=== PATIENT | female | born 2000 | race Two or more races ===

== ENCOUNTER 2023-04-18 06:49 | Emergency (ER) | payer OTHER, SELFPAY ==
[2023-04-18 06:54] VITALS: BP 133/76; PULSE 71; RESP 16; TEMP 36.8; O2SAT 98; BMI 38.4
[2023-04-18 07:15] LABS: Bilirubin Urine NEGATIVE (NEGATIVE); Blood Urine TRACE-I (NEGATIVE); Clarity Urine CLEAR (CLEAR); Color Urine LT. YELLOW (YELLOW); Glucose Urine UA NEGATIVE (NEGATIVE); Ketones Urine NEGATIVE (NEGATIVE); Leukocyte Esterase Urine NEGATIVE (NEGATIVE); Nitrite Urine NEGATIVE (NEGATIVE); Protein Urine NEGATIVE (NEG/TRACE); Specific Gravity Urine 1.025 (1.005-1.025); pH Urine 6.5 (5.0-9.0)
[2023-04-18 07:17] LABS: HCG Qualitative Urine* NEGATIVE (NEGATIVE)
[2023-04-18 07:20] LABS: Urine Microscopic Indicated YES
[2023-04-18 07:29] LABS: Bacteria Urine NONE SEEN #/HPF (NONE SEEN); Cast Seen? NONE SEEN #/LPF (NONE SEEN); Crystals Seen? None Seen #/HPF (None Seen); Mucus Urine NONE SEEN (NONE SEEN); RBC Urine 0-2 #/HPF (0-2); Squamous Epithelial Cell Urine FEW #/LPF (NONE/RARE); WBC Urine NONE SEEN #/HPF (NONE SEEN)
[2023-04-18 07:30] LABS: Amorphous Sediment Urine FEW
[2023-04-18 07:31] LABS: Urine Culture Indicated NO
--- NOTE | 2023-04-18 07:37 | ED_ITS ---
HPI - Female Genitourinary General Chief complaint: Urogenital-Female Time Seen by Provider: 04/18/23 07:01 Source: patient Mode of arrival: walk-in Limitations: no limitations History of Present Illness HPI Narrative: patient here for evaluation of vaginal discharge or odor and itching. She's had one episode of gonorrhea about two years ago. She is sexually aactive and is not using any type of condoms or protection. She said the male counterpart did not admit to having STDs he was aware of. She is not having any severe abdominal pain or fever nausea vomiting diarrhea or negative. She really does not have any frequency or urinary tract symptoms but she does have some burning with urination. Does not have any recent use of an antibiotic and has not had previous candidiasis. She says there is a possibility of so therefore urinalysis and test will be done before the examination. Related Data Allergies Allergy/AdvReac Type Severity Reaction Status Date / Time No Known Drug Allergies Allergy Verified 04/18/23 06:57 PFSH PFSH Social History Smoking status: Never smoker Exam Narrative Exam Narrative: awake alert does not appear to be uncomfortable. She is afebrile. Problem focused examination as noted below. Pelvic examination shows external vaginal introitus be normal with no VESICLES ulcerations or other viral stigmata. The vaginal mucosa is not inflamed there is no curdish type white discharge, the cervix is mildly inflamed. There is a whitish discharge from the cervix. There is similar to a frothy foul-smelling vaginal discharge. Full cultures were taken of the cervicall area. Constitutional Vital Signs - 24 hr 04/18/23 06:54 Temperature 98.3 F Pulse Rate [Monitor] 71 Respiratory Rate 16 Blood Pressure [Right Arm] 133/76 H Pulse Oximetry 98 Oxygen Delivery Method Room Air Course Vital Signs Vital signs: Vital Signs Temperature 98.3 F 04/18/23 06:54 Pulse Rate 71 04/18/23 06:54 Respiratory Rate 16 04/18/23 06:54 Blood Pressure 133/76 H 04/18/23 06:54 Pulse Oximetry 98 04/18/23 06:54 Oxygen Delivery Method Room Air 04/18/23 06:54 Temperature 98.3 F 04/18/23 06:54 Pulse Rate 71 04/18/23 06:54 Respiratory Rate 16 04/18/23 06:54 Blood Pressure 133/76 H 04/18/23 06:54 Pulse Oximetry 98 04/18/23 06:54 Oxygen Delivery Method Room Air 04/18/23 06:54 MDM - Female Genitourinary MDM Narrative Medical decision making narrative: this patient is fearful that she's been exposed to STDs. Findings on the clinical exam are most consistent with trichomoniasis but she would like full coverage for all possible other conditions as well. We did talk about safe condom use and being a little bit more responsible around so that she can provide getting future STDs. Lab Data Labs: Lab Results 04/18/23 04/18/23 Range/Units 07:05 07:20 Urine Color Lt. yellow (YELLOW) Urine Clarity Clear (CLEAR) Urine pH 6.5 (5.0-9.0) Ur Specific [place] 1.025 (1.005-1.025) Urine Protein Negative (NEG/TRACE) mg/dL Urine Glucose (UA) Negative (NEGATIVE) mg/dL Urine Ketones Negative (NEGATIVE) mg/dL Urine Occult Blood Trace-i (NEGATIVE) Urine Nitrite Negative (NEGATIVE) Urine Bilirubin Negative (NEGATIVE) Urine Urobilinogen 1.0 (0.2-1.0) EU/dL Ur Leukocyte Esterase Negative (NEGATIVE) Urine RBC 0-2 (0-2) #/HPF Urine WBC None seen (NONE SEEN) #/HPF Ur Squamous Epith Cells Few A (NONE/RARE) #/LPF Urine Crystals None seen (None Seen) #/HPF Amorphous Sediment Few Urine Bacteria None seen (NONE SEEN) #/HPF Urine Casts None seen (NONE SEEN) #/LPF Urine Mucus None seen (NONE SEEN) Ur Culture Indicated? 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
[2023-04-18] MEDS: CEFTRIAXONE 500 MG, LIDOCAINE HCL/PF 1 ML IM (09:09)
[2023-04-18] MEDS: AZITHROMYCIN 250 MG TABLET 1000 MG PO (09:09)
[2023-04-19 14:14] LABS: Candida species Negative (Negative); Gardnerella vaginalis Positive (Negative); Trichomonas vaginalis Negative (Negative)
--- NOTE | 2023-04-21 10:46 | PC.NURSE ---
04/21/23 call placed to pt to update on + [place]. no answer message left for return call. Cony Horowitz RN
--- NOTE | 2023-04-21 12:26 | PC.NURSE ---
04/21/23 1227 pt returned call updated on + farhan confirmed taking all atb and follow up with pcp. pt v/u and denies any further needs at this time.. Cony Horowitz RN
== END 2023-04-18 09:13 | disposition home or self-care (01) ==
PROVIDERS: Emergency Provider Emergency Medicine Emergency Medical Services
DX: N72 Inflammatory disease of cervix uteri (principal); N76.0 Acute vaginitis
CPT/HCPCS: 81003; 81015; 84703; 87070; 87210; 87480; 87491; 87510; 87591; 87660; 96372; 99284

== ENCOUNTER 2023-07-14 12:28 | Emergency (ER) | payer OTHER, SELFPAY ==
[2023-07-14 12:31] VITALS: BP 129/80; PULSE 85; RESP 16; TEMP 37.1; O2SAT 98; BMI 42.7
[2023-07-14 12:38] VITALS: O2SAT 98
--- NOTE | 2023-07-14 12:48 | ED.URI1 ---
HPI - URI/Sore Throat General Chief Complaint: Upper Respiratory Infection Stated Complaint: HEADACHE Time Seen by Provider: 07/14/23 12:33 Source: patient History of Present Illness HPI Narrative: 22-year-old female presented for sneezing and congestion. No vomiting or diarrhea or fever. No ear pain or drainage. She is worried about having Covid. Symptoms have been present for 2-3 days. Related Data Previous Rx's Medication Instructions Recorded fluticasone propionate 50 1 spray intranasal DAILY PRN nasal 07/14/23 mcg/actuation nasal congestion #16 grams spray,suspension (Flonase Allergy Relief) Allergies Allergy/AdvReac Type Severity Reaction Status Date / Time No Known Drug Allergies Allergy Verified 04/18/23 06:57 Review of Systems ROS Narrative A ten point review of systems is negative except as noted above. PFSH PFS Social History Smoking status: Never smoker Exam Narrative Exam Narrative: Nurses note and vital signs reviewed and patient is not hypoxic. General: The patient appears well and in no apparent distress. Patient is resting comfortably on cart. Skin: Warm, dry, no pallor noted. There is no rash noted. Head: Normocephalic, atraumatic Eye: Normal conjunctiva, no drainage Ears, Nose, Mouth, and Throat: oral mucosa is moist. Nares patent. Mouth without vesicles. Ear canals patent. Tm's without Erythema. No pharyngeal exudate or erythema. She has nasal congestion. Cardiovascular: Regular Rate and Rhythm Respiratory: Patient is in no distress, no accessory muscle use, lungs are clear to auscultation, no wheezing, rales or rhonchi Back: non-tender GI: soft and nontender Musculoskeletal: The patient has no evidence of calf tenderness, no pitting edema, symmetrical pulses noted bilaterally Neurological: A&O, normal speech Psychiatric: Cooperative Constitutional Vital Signs, click to edit/add: Last Vital Signs Temp 98.8 F 07/14/23 12:31 Pulse 85 07/14/23 12:31 Resp 16 07/14/23 12:31 BP 129/80 07/14/23 12:31 Pulse Ox 98 07/14/23 12:38 O2 Del Method Room Air 07/14/23 12:38 Course Vital Signs Vital signs: Vital Signs Temperature 98.8 F 07/14/23 12:31 Pulse Rate 85 07/14/23 12:31 Respiratory Rate 16 07/14/23 12:31 Blood Pressure 129/80 07/14/23 12:31 Pulse Oximetry 98 07/14/23 12:31 Oxygen Delivery Method Room Air 07/14/23 12:31 Temperature 98.8 F 07/14/23 12:31 Pulse Rate 85 07/14/23 12:31 Respiratory Rate 16 07/14/23 12:31 Blood Pressure 129/80 07/14/23 12:31 Pulse Oximetry 98 07/14/23 12:38 Oxygen Delivery Method Room Air 07/14/23 12:38 MDM - URI/Sore Throat MDM Narrative Medical decision making narrative: Covid test is negative. I've no clinical suspicion of pneumonia. Antibiotic not indicated. She'll be treated symptomatically. Treatment diagnosis and follow-up were discussed with the patient. Differential Diagnosis Differential diagnosis: Likely upper respiratory infection, sinusitis and other (Covid) Lab Data Attestation: I reviewed the patient's lab results. Labs: Lab Results 07/14/23 Range/Units 13:01 SARS-CoV-2 (PCR) Negative (NEGATIVE) Discharge Plan Discharge Chief Complaint: Upper Respiratory Infection Clinical Impression: Upper respiratory infection, viral Patient Disposition: Home, Self-Care Time of Disposition Decision: 13:40 Condition: Good Mode of Transportation: Private Vehicle Prescriptions / Home Meds: New fluticasone propionate [Flonase Allergy Relief] 50 mcg/actuation spray,suspension 1 spray intranasal DAILY PRN (Reason: nasal congestion) Qty: 16 0RF Rx Instructions: administer into each nostril Instructions: Upper Respiratory Infection (ED) Stand Alone Forms: Portal Instructions Referrals: Physician,Non-Staff, MD [Primary Care Provider] - 1 week
[2023-07-14 13:30] LABS: SARS-CoV-2 Ag NEGATIVE (NEGATIVE)
[2023-07-14 15:14] LABS: SARS-CoV-2 NAA NOT DETECTED (NOT DETECTE)
== END 2023-07-14 13:53 | disposition home or self-care (01) ==
PROVIDERS: Emergency Provider Emergency Medicine
DX: J06.9 Acute upper respiratory infection, unspecified (principal); Z20.822 Contact with and (suspected) exposure to COVID-19
CPT/HCPCS: 87635; 87811; 99283; U0003

== ENCOUNTER 2023-11-13 17:51 | Emergency (ER) | payer OTHER, SELFPAY ==
[2023-11-13 17:58] VITALS: BP 130/81; PULSE 87; RESP 16; TEMP 36.8; O2SAT 100; BMI 40.2
--- NOTE | 2023-11-13 18:16 | ED_ITS ---
HPI - Nausea/Vomiting/Diarrhea General Chief complaint: Nausea/Vomiting/Diarrhea Stated complaint: DIARRHEA, NAUSEA Time Seen by Provider: 11/13/23 17:56 Source: patient Mode of arrival: walk-in Limitations: no limitations History of Present Illness HPI Narrative: Patient is a 22-year-old female who presents to the emergency department for a 1 day history of vomiting and diarrhea. She states that she vomited all morning and on waking from a nap, she went to work and started vomiting again. She reports multiple episodes of emesis. No recent antibiotics or travel. She is not concerned for . No medications taken prior to arrival. She denies fevers, chills, upper respiratory symptoms. She reports diffuse mild pain across the upper abdomen. Related Data Previous Rx's Medication Instructions Recorded dicyclomine 20 mg tablet 20 mg PO QID PRN abdominal pain 11/13/23 #12 tabs ondansetron 4 mg disintegrating 4 mg PO Q6H PRN nausea and 11/13/23 tablet vomiting #12 tabs Allergies Allergy/AdvReac Type Severity Reaction Status Date / Time No Known Drug Allergies Allergy Verified 11/13/23 17:57 Review of Systems ROS Constitutional Denies: fever or chills Ears, nose, mouth, and throat Denies: throat pain or nasal congestion Cardiovascular Denies: chest pain Respiratory Denies: shortness of breath or cough Gastrointestinal Reports: abdominal pain, nausea, vomiting and diarrhea Genitourinary Denies: painful urination Musculoskeletal Denies: back pain or neck pain Integumentary/Breast Denies: rash Neurological Reports: headache Endocrine Denies: excessive urination PFSH PFS Social History Smoking status: Current every day smoker Exam Narrative Exam Narrative: Gen.: Awake, alert, in no distress Head: Normocephalic, atraumatic ENT: Moist mucous membranes Respiratory: No respiratory distress, lungs clear bilaterally Cardio: Regular rate and rhythm Gastrointestinal: Abdomen is soft, nondistended and nontender to palpation Extremities: Moves extremities equally Psych: Normal mood and affect Neuro: No focal neuro deficit Skin: Warm, dry, intact Constitutional Vital Signs, click to edit/add: Last Vital Signs Temp 98.3 F 11/13/23 17:58 Pulse 87 11/13/23 17:58 Resp 16 11/13/23 17:58 BP 130/81 11/13/23 17:58 Pulse Ox 100 11/13/23 17:58 Course Vital Signs Vital signs: Vital Signs Temperature 98.3 F 11/13/23 17:58 Pulse Rate 87 11/13/23 17:58 Respiratory Rate 16 11/13/23 17:58 Blood Pressure 130/81 11/13/23 17:58 Pulse Oximetry 100 11/13/23 17:58 Temperature 98.3 F 11/13/23 17:58 Pulse Rate 87 11/13/23 17:58 Respiratory Rate 16 11/13/23 17:58 Blood Pressure 130/81 11/13/23 17:58 Pulse Oximetry 100 11/13/23 17:58 MDM - Nausea/Vomiting/Diarrhea MDM Narrative Medical decision making narrative: Patient treated with IV fluids, Zofran, Levsin. Additional Toradol and Bentyl were given. Abdomen is soft and benign. Lab studies within normal limits and stool culture is negative. Patient discharged home with symptomatic treatment, work note provided. Increase fluids. Return to the ER if symptoms change or worsen. Medical Records Attestation: I reviewed the patient's medical records. Lab Data Attestation: I reviewed the patient's lab results. Labs: Lab Results 11/13/23 11/13/23 Range/Units 18:23 18:26 WBC 11.3 H (4.0-11.0) 10^3/uL RBC 4.18 L (4.20-5.40) 10^6/uL Hgb 12.2 (12.0-16.0) g/dL Hct 37.6 (36.0-48.0) % MCV 90.0 (81.0-99.0) fL MCH 29.2 (26.7-34.0) pg MCHC 32.4 (29.9-35.2) g/dL RDW 12.1 (11.0-15.0) % Plt Count 290 (150-450) 10^3/uL MPV 9.0 L (9.5-13.5) fL Neut % (Auto) 79.4 H (43.0-75.0) % Lymph % (Auto) 11.1 L (20.5-60.0) % [place] % (Auto) 8.5 (1.7-12.0) % Eos % (Auto) 0.4 L (0.9-7.0) % Baso % (Auto) 0.3 (0.2-2.0) % Neut # (Auto) 8.9 H (1.4-6.5) 10^3/uL Lymph # (Auto) 1.3 (1.2-3.8) 10^3/uL [place] # (Auto) 1.0 H (0.3-0.8) 10^3/uL Eos # (Auto) 0.1 (0.0-0.7) 10^3/uL Baso # (Auto) 0.0 (0.0-0.1) 10^3/uL Abs Immat Gran (auto) 0.03 (0.00-0.03) 10^3/uL Imm/Tot Granulo (auto) 0.3 (0.0-0.5) % Sodium 137 (136-145) mmol/L Potassium 3.7 (3.5-5.1) mmol/L Chloride 103 (98-107) mmol/L Carbon Dioxide 23.2 (21.0-32.0) mmol/L Anion Gap 14.5 BUN 10.0 (7.0-18.0) mg/dL Creatinine 0.83 (0.55-1.02) mg/dL Est GFR ( Amer) >60 (>=60) Est GFR (Non-Af Amer) >60 (>=60) BUN/Creatinine Ratio 12.0 Glucose 88 (74-106) mg/dL Calcium 8.4 L (8.5-10.1) mg/dL Total Bilirubin 0.6 (0.2-1.0) mg/dL AST 14 L (15-37) U/L ALT 15 (14-59) U/L Alkaline Phosphatase 89 (46-116) U/L Total Protein 7.6 (6.4-8.2) g/dL Albumin 3.4 (3.4-5.0) g/dL Globulin 4.2 g/dL Albumin/Globulin Ratio 0.8 Lipase 18.0 (16.0-77.0) U/L Serum HCG, Qual Negative (NEGATIVE) Stl C. cayetanensis PCR Not detected (NOT DETECTE) Stool Rotavirus (PCR) Not detected (NOT DETECTE) Stool Adenovirus (PCR) Not detected (NOT DETECTE) Stool Astrovirus (PCR) Not detected (NOT DETECTE) Stool Campylobacter PCR Not detected (NOT DETECTE) Stool Cryptosporidium PCR Not detected (NOT DETECTE) St Sh/Enteroin Ecoli PCR Not detected (NOT DETECTE) Stl Enterotoxigenic E PCR Not detected (NOT DETECTE) Stool EPEC (PCR) Not detected (NOT DETECTE) Stl E. histolytica PCR Not detected (NOT DETECTE) Stool Giardia Lamblia PCR Not detected (NOT DETECTE) Stl P. shigelloides PCR Not detected (NOT DETECTE) Stool Salmonella PCR Not detected (NOT DETECTE) Stool Sapovirus (PCR) Not detected (NOT DETECTE) Stl Shiga-like Tx 1 PCR Not detected (NOT DETECTE) St Y.enterocolitica PCR Not detected (NOT DETECTE) Stl Vibrio cholerae PCR Not detected (NOT DETECTE) Stl Enteroaggr Ecoli PCR Not detected (NOT DETECTE) Stl Norovirus GI/GII PCR Not detected (NOT DETECTE) C. difficile Toxin A&B Not detected (NOT DETECTE) Vibrio Culture Not detected (NOT DETECTE) Discharge Plan Discharge Chief Complaint: Nausea/Vomiting/Diarrhea Clinical Impression: Nausea vomiting and diarrhea Patient Disposition: Home, Self-Care Time of Disposition Decision: 21:16 Condition: Good Prescriptions / Home Meds: New dicyclomine 20 mg tablet 20 mg PO QID PRN (Reason: abdominal pain) Qty: 12 0RF ondansetron 4 mg tablet,disintegrating 4 mg PO Q6H PRN (Reason: nausea and vomiting) Qty: 12 0RF Instructions: Acute Nausea and Vomiting (ED), Acute Diarrhea (ED) Stand Alone Forms: Portal Instructions Referrals: Physician,Non-Staff, MD [Primary Care Provider] - 1 week Discharge Date/Time: 11/13/23 21:50
[2023-11-13] MEDS: ONDANSETRON PF 4 MG/2 ML VIAL IV (18:31)
[2023-11-13] MEDS: FAMOTIDINE/PF 20 MG/2 ML VIAL IV (18:31)
[2023-11-13] MEDS: HYOSCYAMINE SULFATE 0.125 MG TAB.SUBL SL (18:32)
[2023-11-13] MEDS: 0.9 % SODIUM CHLORIDE 1,000 ML 999 ML IV (18:32)
[2023-11-13 18:48] LABS: Adenovirus F 40/41 NOT DETECTED (NOT DETECTE); Astrovirus NOT DETECTED (NOT DETECTE); Campylobacter NOT DETECTED (NOT DETECTE); Cryptosporidium NOT DETECTED (NOT DETECTE); Cyclospora cayetanensis NOT DETECTED (NOT DETECTE); Entamoeba histolytica NOT DETECTED (NOT DETECTE); Enteroaggregative E.coli NOT DETECTED (NOT DETECTE); Enteropathogenic E.coli NOT DETECTED (NOT DETECTE); Enterotoxigenic E. coli NOT DETECTED (NOT DETECTE); Giardia lamblia NOT DETECTED (NOT DETECTE); Norovirus GI/GII NOT DETECTED (NOT DETECTE); Plesiomonas shigelloides NOT DETECTED (NOT DETECTE); Rotavirus A NOT DETECTED (NOT DETECTE); Salmonella NOT DETECTED (NOT DETECTE); Sapovirus NOT DETECTED (NOT DETECTE); Shiga-like toxin-producing E.C NOT DETECTED (NOT DETECTE); Shigella/Enteroinvasive E.coli NOT DETECTED (NOT DETECTE); Vibrio NOT DETECTED (NOT DETECTE); Vibrio cholerae NOT DETECTED (NOT DETECTE); Yersinia enterocolitica NOT DETECTED (NOT DETECTE)
[2023-11-13 19:05] LABS: Basophils Percent Auto 0.3 % (0.2-2.0); Eosinophils Absolute Auto 0.1 10^3/uL (0.0-0.7); Eosinophils Percent Auto 0.4 % (0.9-7.0); Hematocrit 37.6 % (36.0-48.0); Hemoglobin 12.2 g/dL (12.0-16.0); Immature Granulocytes Abs Auto 0.03 10^3/uL (0.00-0.03); Immature Granulocytes Pct Auto 0.3 % (0.0-0.5); Lymphocytes Absolute Auto 1.3 10^3/uL (1.2-3.8); Lymphocytes Percent Auto 11.1 % (20.5-60.0); Mean Corpuscular HGB Conc 32.4 g/dL (29.9-35.2); Mean Corpuscular Hemoglobin 29.2 pg (26.7-34.0); Monocytes Percent Auto 8.5 % (1.7-12.0); Neutrophils Absolute Auto 8.9 10^3/uL (1.4-6.5); Neutrophils Percent Auto 79.4 % (43.0-75.0); Platelet Count 290 10^3/uL (150-450); Red Blood Count 4.18 10^6/uL (4.20-5.40); Red Cell Distribution Width 12.1 % (11.0-15.0); White Blood Count 11.3 10^3/uL (4.0-11.0)
[2023-11-13] MEDS: DICYCLOMINE HCL 10 MG CAPSULE 20 MG PO (19:43)
[2023-11-13] MEDS: KETOROLAC TROMETHAMINE 30 MG/ML VIAL IVP (19:43)
[2023-11-13 19:47] LABS: Alanine Aminotransferase 15 U/L (14-59); Albumin Globulin Ratio 0.8; Albumin Level 3.4 g/dL (3.4-5.0); Alkaline Phosphatase 89 U/L (46-116); Anion Gap 14.5; Aspartate Amino Transferase 14 U/L (15-37); Bilirubin Total 0.6 mg/dL (0.2-1.0); Calcium 8.4 mg/dL (8.5-10.1); Carbon Dioxide 23.2 mmol/L (21.0-32.0); Chloride 103 mmol/L (98-107); Estimated GFR (African America >60 (>=60); Estimated GFR (Non-African Ame >60 (>=60); Globulin 4.2 g/dL; Glucose 88 mg/dL (74-106); Potassium 3.7 mmol/L (3.5-5.1); Sodium 137 mmol/L (136-145); Total Protein 7.6 g/dL (6.4-8.2)
[2023-11-13 19:58] LABS: HCG Qualitative NEGATIVE (NEGATIVE)
== END 2023-11-13 21:50 | disposition home or self-care (01) ==
PROVIDERS: Physician Assistant; Emergency Provider Emergency Medicine
DX: R11.2 Nausea with vomiting, unspecified (principal); R19.7 Diarrhea, unspecified; F17.200 Nicotine dependence, unspecified, uncomplicated
CPT/HCPCS: 36415; 80053; 83690; 84703; 85025; 87507; 96374; 96375; 99284; J1885; J2405

== ENCOUNTER 2023-12-14 21:34 | Outpatient (REF) | payer OTHER, SELFPAY ==
--- OUTSIDE RECORDS SUMMARY | 2023-12-14 21:39 | XMS_ITS | CCD ---
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 Fernando Rasheed MD Urine RBC's 0 TO 2 Normal 0-4 [facility] Comment on above: Result Comment: Refe rence range defined for non-centrifuged specimen. Performed By: #### U PHUCO, UAX #### [address] [address] [employer]: Fernando Rasheed MD Urine WBC's 5 TO 10 Normal 0-5 [facility] Comment on above: Performed By: #### U PHUCO, UAX #### [address] [address] [employer]: Fernando Rasheed MD Vaginitis DNA Probeon 2021 Bandar Negative Normal NEG [facility] Comment on above: Result Comment: for Bandar sp. Method of testing is a DNA probe intended for detection and identification of Bandar species, Gardnerella vaginalis, and Trichomonas vaginalis nucleic acid in vaginal fluid specimens from patients with symptoms of vaginitis/vaginosis. Performed By: #### V AGP ####[address] [address] Lab Director: Fernando Rasheed MD Gardnerella Positive Abnormal NEG [facility] Comment on above: Result Comment: for Gardnerella vaginalis Performed By: #### V AGP ####[address] [place] [address] Lab Director: Fernando Rasheed MD Trichomonas Negative Normal NEG [facility] Comment on above: Result Comment: for Trichomonas Vaginalis Performed By: #### V AGP ####[facility] [address] [address] Lab Director: Fernando Rasheed MD Source .VAGINAL SWAB Normal [facility] Comment on above: Performed By: #### V AGP ####[facility] [address] [place] [address] Lab Director: Fernando Rasheed MD Chlamydia/GC,DNA Ampon 02-07 Chlamydia Probe Negative [facility] Comment on above: Result Comment: CHLA MYDIA TRACHOMATIS DNA not detected by nucleic acid amplification. This test is intended for medical purposes only and is not valid for the evaluation of suspected sexual abuse or for other forensic purposes. In certain contexts, culture may be required to meet applicable laws and regulations for diagnosis of C. trachomatis and N. gonorrhoeae infections. Per 2014 CDC recommendations, this test does not include confirmation of positive results by an alternative nucleic acid target. Performed By: #### S WCGP #### [address] [address] [employer]: Fernando Rasheed MD Gonorrhea Probe Negative [facility] Comment on above: Result Comment: NEIS SERIA GONORRHOEAE DNA not detected by nucleic acid amplification. This test is intended for medical purposes only and is not valid for the evaluation of suspected sexual abuse or for other forensic purposes. In certain contexts, culture may be required to meet applicable laws and regulations for diagnosis of C. trachomatis and N. gonorrhoeae infections. Per 2014 CDC recommendations, this test does not include confirmation of positive results by an alternative nucleic acid target. Performed By: #### S WCGP #### [address] [address] [employer]: Fernando Rasheed MD Basic Metab w/rfx MGon 02-05 (cont.) [facility] Comment on above: Result Comment: Aver age GFR for 20-29 years old: 116 mL/min/1.73sq m Chronic Kidney Disease: <60 mL/min/1.73sq m Kidney failure: <15 mL/min/1.73sq m eGFR calculated using average adult body mass. Additional eGFR calculator available at: http://www.[employer].Eventtus/multiple_crcl_2012.htm Performed By: #### C DP, HCG, BMPX #### [facility] [address] [place] [address] [employer] Operator: Bill Landeros DO Anion gap [Moles/Vol] 11 mmol/L Normal 9-17 [facility] Comment on above: Performed By: #### C DP, HCG, BMPX #### [facility] [address] [place] [address] [employer] Operator: Bill Landeros DO Calcium [Mass/Vol] 8.6 mg/dL Normal 8.6-10.4 [facility] Comment on above: Performed By: #### C DP, HCG, BMPX #### [facility] [place] [address] [employer] Operator: Bill Landeros DO Chloride [Moles/Vol] 105 mmol/L Normal 98-107 [facility] Comment on above: Performed By: #### C DP, HCG, BMPX #### [facility] [address] [place] [address] [employer] Operator: Bill Landeros DO CO2 [Moles/Vol] 23 mmol/L Normal 20-31 [facility] Comment on above: Performed By: #### C DP, HCG, BMPX #### [facility] [place] [address] [employer] Operator: Bill Landeros DO Creatinine [Mass/Vol] 0.66 mg/dL Normal 0.50-0.90 [facility] Comment on above: Performed By: #### C DP, HCG, BMPX #### [facility] [address] [place] [address] [employer] Operator: Bill Landeros DO GFR, Amer >60 Normal >60 [facility] Comment on above: Performed By: #### C DP, HCG, BMPX #### [facility] [address] [place] [address] [employer] Operator: Bill Landeros DO GFR,non Amer >60 Normal >60 [facility] Comment on above: Performed By: #### C DP, HCG, BMPX #### [facility] [place] [address] [employer]: Bill Landeros DO Glucose [Mass/Vol] 130 mg/dL High 70-99 [facility] Comment on above: Performed By: #### C DP, HCG, BMPX #### [facility] [place] [address] [employer]: Bill Landeros DO Potassium [Moles/Vol] 4.0 mmol/L Normal 3.7-5.3 [facility] Comment on above: Performed By: #### C DP, HCG, BMPX #### [facility] [place] [address] [employer] Operator: Bill Landeros DO Sodium [Moles/Vol] 139 mmol/L Normal 135-144 [facility] Comment on above: Performed By: #### C DP, HCG, BMPX #### [facility] [place] [address] [employer] Operator: Bill Landeros DO Urea nitrogen [Mass/Vol] 13 mg/dL Normal 6-20 [facility] Comment on above: Performed By: #### C DP, HCG, BMPX #### [facility] [place] [address] [employer]: Bill Landeros DO CBC with Diffon 02-05-2022 Abs. Basophil 0.00 k/uL Normal 0.0-0.2 [facility] Comment on above: Performed By: #### C DP, HCG, BMPX #### [facility] [address] [place] [address] [employer]: Bill Landeros DO Abs.Neutrophil (Seg) 6.90 k/uL Normal 1.3-9.1 [facility] Comment on above: Performed By: #### C DP, HCG, BMPX #### [facility] [address] [place] [address] [employer]: Bill Landeros DO Basophils/100 WBC (Bld) 0 % Normal 0-2 [facility] Comment on above: Performed By: #### C DP, HCG, BMPX #### [facility] [address] [place] [address] [employer] Operator: Bill Landeros DO Eosinophils (Bld) [#/Vol] 0.10 10*3/uL Normal 0.0-0.4 [facility] Comment on above: Performed By: #### C DP, HCG, BMPX #### [facility] [address] [place] [address] [employer]: Bill Landeros DO Eosinophils/100 WBC (Bld) 1 % Normal 0-4 [facility] Comment on above: Performed By: #### C DP, HCG, BMPX #### [facility] [address] [place] [address] [employer] Operator: Bill Landeros DO Erythrocyte distribution width (RBC) [Ratio] 12.7 % Normal 11.5-14.9 [facility] Comment on above: Performed By: #### C DP, HCG, BMPX #### [facility] [place] [address] [employer] Operator: Bill Landeros DO Hematocrit (Bld) [Volume fraction] 38.4 % Normal 36-46 [facility] Comment on above: Performed By: #### C DP, HCG, BMPX #### [facility] [place] [address] [employer] Operator: Bill Landeros DO Hemoglobin (Bld) [Mass/Vol] 12.7 g/dL Normal 12.0-16.0 [facility] Comment on above: Performed By: #### C DP, HCG, BMPX #### [facility] [address] [place] [address] [employer] Operator: Bill Landeros DO Lymphocytes (Bld) [#/Vol] 2.20 10*3/uL Normal 1.2-5.2 [facility] Comment on above: Performed By: #### C DP, HCG, BMPX #### [facility] [address] [place] [address] [employer] Operator: Bill Landeros DO Lymphocytes/100 WBC (Bld) 22 % Low 25-45 [facility] Comment on above: Performed By: #### C DP, HCG, BMPX #### [facility] [place] [address] [employer] Operator: Bill Landeros DO MCH (RBC) [Entitic mass] 28.8 pg Normal 26-34 [facility] Comment on above: Performed By: #### C DP, HCG, BMPX #### [facility] [place] [address] [employer] Operator: Fanelly, Bill, DO MCHC (RBC) [Mass/Vol] 32.9 g/dL Normal 31-37 [facility] Comment on above: Performed By: #### C DP, HCG, BMPX #### [facility] [place] [address] [employer] Operator: Bill Landeros DO MCV (RBC) [Entitic vol] 87.5 fL Normal 80-100 [facility] Comment on above: Performed By: #### C DP, HCG, BMPX #### [facility] [place] [address] [employer] Operator: Bill Landeros DO Monocytes (Bld) [#/Vol] 0.70 10*3/uL Normal 0.1-1.3 [facility] Comment on above: Performed By: #### C DP, HCG, BMPX #### [facility] [address] [place] [address] [employer] Operator: Bill Landeros DO Monocytes/100 WBC (Bld) 7 % Normal 2-8 [facility] Comment on above: Performed By: #### C DP, HCG, BMPX #### [facility] [address] [place] [address] [employer] Operator: Bill Landeros DO Neutrophil (Seg) 70 % High 34-64 [facility] Comment on above: Performed By: #### C DP, HCG, BMPX #### [facility] [place] [address] [employer] Operator: Bill Landeros DO Platelet mean volume (Bld) [Entitic vol] 6.8 fL Normal 6.0-12.0 [facility] Comment on above: Performed By: #### C DP, HCG, BMPX #### [facility] [address] [place] [address] [employer] Operator: Bill Landeros DO Platelets (Bld) [#/Vol] 305 10*3/uL Normal 150-450 [facility] Comment on above: Performed By: #### C DP, HCG, BMPX #### [facility] [address] [place] [address] [employer] Operator: Bill Landeros DO RBC (Bld) [#/Vol] 4.39 10*6/uL Normal 4.0-5.2 [facility] Comment on above: Performed By: #### C DP, HCG, BMPX #### [facility] [place] [address] [employer] Operator: Bill Landeros DO WBC (Bld) [#/Vol] 9.9 10*3/uL Normal 4.5-13.5 [facility] Comment on above: Performed By: #### C DP, HCG, BMPX #### [facility] [address] [facility] [place] [address] [employer] Operator: Bill Landeros DO HCG Screen, Bloodon 02-06-20 HCG Screen, Blood Negative Normal NEG [facility] Comment on above: Result Comment: Spec imens with hCG levels near the threshold of the test (25 mIU/mL) may give a negative or indeterminate result. In such cases, another test should be performed with a new specimen in 48-72 hours. If early is suspected clinically in this setting, correlation with quantitative serum b-hCG level is suggested. Performed By: #### C DP, HCG, BMPX #### [facility] [address] [place] [address] [employer] Operator: Bill Landeros DO Urinalysis w/ Microon 2021 Bacteria FEW Abnormal NONE [facility] Comment on above: Performed By: #### U AMIC #### [facility] [place] [address] [employer] Operator: Bill Landeros DO Casts 0 TO 2 Normal [facility] Comment on above: Performed By: #### U AMIC #### [facility] [address] [place] [address] [employer] Operator: Bill Landeros DO Epithelial cells LM Ql (Urine sed) 6 TO 9 Normal [facility] Comment on above: Performed By: #### U AMIC #### [facility] [address] [place] [address] [employer] Operator: Bill Landeros DO Urine RBC's 10 TO 20 Normal [facility] Comment on above: Performed By: #### U AMIC #### [facility] [address] [place] [address] [employer] Operator: Bill Landeros DO Urine WBC's 10 TO 20 Normal [facility] Comment on above: Performed By: #### U AMIC #### [facility] [address] [place] [address] [employer] Operator: Bill Landeros DO Bilirubin, SemiQt,Ur Negative Normal NEG [facility] Comment on above: Performed By: #### U AMIC #### [facility] [address] [place] [address] [employer] Operator: Bill Landeros DO Blood, Urine LARGE Abnormal NEG [facility] Comment on above: Performed By: #### U AMIC #### [facility] [address] [place] [address] [employer] Operator: Bill Landeros DO Clarity (U) Clear Normal CLEAR [facility] Comment on above: Performed By: #### U AMIC #### [facility] [address] [place] [address] [employer] Operator: Bill Landeros DO Color (U) Yellow Normal YEL [facility] Comment on above: Performed By: #### U AMIC #### [facility] [address] [facility] [place] [address] [employer] Operator: Bill Landeros DO Glucose Ql (U) Negative Normal NEG [facility] Comment on above: Performed By: #### U AMIC #### [facility] [address] [place] [address] [employer] Operator: Bill Landeros DO Ketones Ql (U) Negative Normal NEG [facility] Comment on above: Performed By: #### U AMIC #### [facility] [address] [place] [address] [employer] Operator: Bill Landeros DO Leukocyte esterase Test strip Ql (U) SMALL Abnormal NEG [facility] Comment on above: Performed By: #### U AMIC #### [facility] [place] [address] [employer] Operator: Bill Landeros DO Nitrite,Ur Negative Normal NEG [facility] Comment on above: Performed By: #### U AMIC #### [facility] [address] [place] [address] [employer] Operator: Bill Landeros DO PH,Ur 6.5 Normal 5.0-8.0 [facility] Comment on above: Performed By: #### U AMIC #### [facility] [address] [place] [address] [employer] Operator: Bill Landeros DO Protein Ql (U) TRACE Abnormal NEG [facility] [facility] Comment on above: Performed By: #### U AMIC #### [facility] [address] [place] [address] Contour Path Tape Mill Operator: Bill Landeros DO Spec. [place],Ur 1.025 Normal 1.000-1.030 [facility] Comment on above: Performed By: #### U AMIC #### [facility] [address] [place] [address] Contour Path T[employer] Mill Operator: Bill Landeros DO Urobilinogen,Ur Normal Normal NORM [facility] Comment on above: Performed By: #### U AMIC #### [facility] [address] [place] [address] Contour Path T[employer] Mill Operator: Bill Landeros DO Vaginitis DNA Probeon 2021 Bandar Negative Normal NEG [facility] Comment on above: Result Comment: for Bandar sp. Method of testing is a DNA probe intended for detection and identification of Bandar species, Gardnerella vaginalis, and Trichomonas vaginalis nucleic acid in vaginal fluid specimens from patients with symptoms of vaginitis/vaginosis. Performed By: #### V AGP #### [facility] [address] [place] [address] [employer] T[employer] Mill Operator: Bill Landeros DO Gardnerella Negative Normal NEG [facility] Comment on above: Result Comment: for Gardnerella vaginalis Performed By: #### V AGP #### [facility] [address] [place] [address] [employer] Mill Operator: Bill Landeros DO Trichomonas Positive Abnormal NEG [facility] Comment on above: Result Comment: for Trichomonas Vaginalis Performed By: #### V AGP #### [facility] [address] [place] [address] [employer] Mill Operator: Bill Landeros DO Source .VAGINAL SWAB Normal [facility] Comment on above: Performed By: #### V AGP #### [facility] [address] [place] [address] Cont[employer] Mill Operator: Fanelly, Bill, DO CBC Auto Differentialon 11-1 8-2021 Absolute Eos # <0.03 [facility] th Absolute Immature Granulocyte <0.03 [facility] Absolute Lymph # 2.01 [facility] alth Absolute [place] # 0.64 [facility] Basophils (Bld) [#/Vol] 10*3/uL [facility] Basophils/100 WBC (Bld) 0 % 0 - 2 % [facility] Differential Type NOT REPORTED [facility] Eosinophils/100 WBC (Bld) 0 % Low 1 - 4 % [facility] Hematocrit (Bld) [Volume fraction] 40.2 % 36.3 - 47.1 % [facility] Hemoglobin.gastroint estinal spec 1 Ql (Stl) 13.0 g/dL 11.9 - 15.1 g/dL [facility] Immature granulocytes/100 WBC (Bld) 0 % 0 [facility] Interpretation and review of laboratory results Abnormal [facility] Lymphocytes/100 WBC (Bld) 35 % 25 - 45 % [facility] MCH (RBC) [Entitic mass] 28.8 pg 25.2 - 33.5 pg [facility] MCHC (RBC) [Mass/Vol] 32.3 g/dL 28.4 - 34.8 g/dL [facility] MCV (RBC) [Entitic vol] 88.9 fL 82.6 - 102.9 fL [facility] Monocytes/100 WBC (Bld) 11 % High 2 - 8 % [facility] NRBC Automated 0.0 0.0 per 100 WBC [facility] Platelet distribution width (Bld) [Ratio] 11.9 % 11.8 - 14.4 % [facility] Platelet Estimate NOT REPORTED [facility] Platelet mean volume (Bld) [Entitic vol] 10.2 fL 8.1 - 13.5 fL [facility] Platelets (Bld) [#/Vol] 201 10*3/uL [facility] RBC (Bld) [#/Vol] 4.52 10*6/uL 3.95 - 5.1 1 m/uL [facility] RBC (Bld) [#/Vol] NOT REPORTED [facility] Segmented neutrophils/100 WBC (Bld) 54 % 34 - 64 % [facility] Segs Absolute 2.99 [facility] WBC (Bld) [#/Vol] 5.7 10*3/uL [facility] WBC (Bld) [#/Vol] NOT REPORTED [facility] COVID-19, Rapidon 09-16-2021 Interpretation and review of laboratory results Abnormal [facility] SARS-CoV-2 (COVID-19) RNA TRISH+probe Ql (Unsp spec) Detected Abnormal Not Detected [facility] Comment on above: Rapid NAAT: The specimen is POSITIVE for SARS-Cov-2, the novel coronavirus associated with COVID-19. This test has been authorized by the FDA under an Emergency Use Authorization (EUA) for use by authorized laboratories. The ID NOW COVID-19 assay is designed to detect the virus that causes COVID-19 in patients with signs and symptoms of infection who are suspected of COVID-19. An individual without symptoms of COVID-19 and who is not shedding SARS-CoV-2 virus would expect to have a negative (not detected) result in this assay. Fact sheet for Healthcare Providers: https://www.fda.gov/media/864194/download Fact sheet for Patients: https://www.fda.gov/media/455796/download Methodology: Isothermal Nucleic Acid Amplification Results reported to the appropriate Health Department Specimen Description .NASOPHARYNGEAL SWAB [facility] Comprehensive Metabolic Pane l w/ Reflex to MGon 09-16-2021 Albumin [Mass/Vol] 3.9 g/dL 3.5 - 5.2 g/dL [facility] Albumin/Globulin [Mass ratio] 1.1 {ratio} [facility] ALP (Bld) [Catalytic activity/Vol] 68 U/L 35 - 104 U/L [facility] ALT [Catalytic activity/Vol] 14 U/L 5 - 33 U/L [facility] Anion gap [Moles/Vol] 9 mmol/L 9 - 17 mmol/L [facility] AST [Catalytic activity/Vol] 19 U/L <32 [facility] Bilirubin [Mass/Vol] 0.34 mg/dL 0.3 - 1.2 mg/dL [facility] Calcium [Mass/Vol] 8.7 mg/dL 8.6 - 10. 4 mg/dL [facility] Chloride [Moles/Vol] 104 mmol/L 98 - 107 mmol/L [facility] CO2 [Moles/Vol] 26 mmol/L 20 - 31 mmol/L [facility] Creatinine [Mass/Vol] 0.6 mg/dL 0.50 - 0.90 mg/dL [facility] Free PSA/Total PSA [Mass fraction] 7.5 g/dL 6.4 - 8.3 g/dL [facility] GFR NOT REPORTED >60 mL/min [facility] GFR Non- Pediatric GFR requires additional information. Refer to NKDEP website for calculator. >60 mL/min [facility] [employer] GFR/1.73 sq M.predicted MDRD (S/P/Bld) [Vol rate/Area] [facility] Comment on above: Average GFR for <20 years old not available. Chronic Kidney Disease: <60 mL/min/1.73sq m Kidney failure: <15 mL/min/1.73sq m eGFR calculated using average adult body mass. Additional eGFR calculator available at: http://www.HealthyOut/multiple_crcl_2012.htm GFR/1.73 sq M.predicted MDRD (S/P/Bld) [Vol rate/Area] NOT REPORTED [facility] Glucose [Mass/Vol] 106 mg/dL High 70 - 99 mg/dL [facility] Interpretation and review of laboratory results Abnormal [facility] Potassium [Moles/Vol] 4.0 mmol/L 3.7 - 5.3 mmol/L [facility] Sodium [Moles/Vol] 139 mmol/L 135 - 144 mmol/L [facility] Urea nitrogen (BldV) [Mass/Vol] 6 mg/dL 6 - 20 mg/dL [facility] Urea nitrogen/Creatinine (Bld) [Mass ratio] NOT REPORTED [facility] Lipaseon 09-16-2021 Lipase [Catalytic activity/Vol] 18 U/L 13 - 60 U/L [facility] No Panel Informationon 09-16 [facility] XR CHEST PORTABLEon 09-16-20 Suggestion of mild peribronchial cuffing, which can be seen in a setting of reactive airway disease or viral infection without confluent airspace opacity seen. [facility] RIS CONSOLIDATED EXAMINATION: ONE XRAY VIEW OF THE CHEST 09/16/2021 10:21 pm COMPARISON: None. HISTORY: ORDERING SYSTEM PROVIDED HISTORY: Cough/diarrhea/r/o covid TECHNOLOGIST PROVIDED HISTORY: Cough/diarrhea/r/o covid FINDINGS: The cardiac silhouette appears within normal limits. There is suggestion of mild peribronchial cuffing, which can be seen in a setting of reactive air disease or viral infection without confluent airspace opacity, pleural effusion or pneumothorax is seen. [facility] RIS Kishan Kelsey - 09/16/2021 EXAMINATION: ONE XRAY VIEW OF THE CHEST 09/16/2021 10:21 pm COMPARISON: None. HISTORY: ORDERING SYSTEM PROVIDED HISTORY: Cough/diarrhea/r/o covid TECHNOLOGIST PROVIDED HISTORY: Cough/diarrhea/r/o covid FINDINGS: The cardiac silhouette appears within normal limits. There is suggestion of mild peribronchial cuffing, which can be seen in a setting of reactive air disease or viral infection without confluent airspace opacity, pleural effusion or pneumothorax is seen. IMPRESSION: Suggestion of mild peribronchial cuffing, which can be seen in a setting of reactive airway disease or viral infection without confluent airspace opacity seen. [employer] Phone: Radiology Study observation (narrative) [employer] Phone: XR CHEST PORTABLEOrdered By: Kishan Vicente on 09-16-2021 [employer] Phone: Microscopic Urinalysison - [facility] [place] Amorphous, UA NOT REPORTED None Site Tour a lt Bacteria, UA NOT REPORTED None Site Tour [facility] Casts UA NOT REPORTED [place] Crystals, UA NOT REPORTED None /HPF [facility] Epithelial Cells UA 0 TO 2 [place] Mucus, UA NOT REPORTED None [facility] Other Observations UA NOT REPORTED NOT REQ. [facility] RBC, UA None [facility] Comment on above: Reference range defi nick for non-centrifuged specimen. Renal Epithelial, UA NOT REPORTED 0 /HPF [facility] Trichomonas, UA NOT REPORTED None Site Tour [facility] WBC, UA 2 TO 5 [facility] Yeast, UA NOT REPORTED None [employer] , Urineon 1 Beta HCG ( test) Ql (U) Negative NEGATIVE [facility] Comment on above: Specimens with hCG l evels near the threshold of the test (25 mIU/mL) may give a negative or indeterminate result. In such cases, another test should be performed with a new specimen in 48-72 hours. If early is suspected clinically in this setting, correlation with quantitative serum b-hCG level is suggested. [facility] Urinalysis Reflex to Culture on 09-09-2021 Bilirubin Urine Negative NEGATIVE [facility] Color, UA Yellow Yellow [facility] Glucose, Ur Negative NEGATIVE [facility] Interpretation and review of laboratory results Abnormal [facility] Ketones Ql (U) Negative NEGATIVE [facility] Leukocyte esterase Test strip Ql (U) TRACE Abnormal NEGATIVE [facility] Nitrite, Urine Negative NEGATIVE [facility] pH, UA 7.0 [facility] Protein, UA Negative NEGATIVE [facility] Specific [place], UA 1.005 [facility] Turbidity UA Clear Clear [facility] Urinalysis Comments NOT REPORTED [facility] Urine Hgb Negative NEGATIVE [facility] Urobilinogen, Urine Normal Normal [facility] COVID-19, RapidOrdered By: Fanny Joe on 06-30-2021 SARS-CoV-2 (COVID-19) RNA TRISH+probe Ql (Unsp spec) Not detected Not Detected [employer] Phone: Comment on above: Rapid NAAT: The specimen is NEGATIVE for SARS-CoV-2, the novel coronavirus associated with COVID-19. The ID NOW COVID-19 assay is designed to detect the virus that causes COVID-19 in patients with signs and symptoms of infection who are suspected of COVID-19. An individual without symptoms of COVID-19 and who is not shedding SARS-CoV-2 virus would expect to have a negative (not detected) result in this assay. Negative results should be treated as presumptive and, if inconsistent with clinical signs and symptoms or necessary for patient management, should be tested with an alternative molecular assay. Negative results do not preclude SARS-CoV-2 infection and should not be used as the sole basis for patient management decisions. Fact sheet for Healthcare Providers: https://www.fda.gov/media/678531/download Fact sheet for Patients: https://www.fda.gov/media/048240/download Methodology: Isothermal Nucleic Acid Amplification Specimen Description .NASOPHARYNGEAL SWAB [employer] Phone: [employer] Phone: *SARS-CoV-2 COVID-19on 09-29 [id number] Not Detected Normal Not Detected [facility] Comment on above: Order Comment: The A ptima SARS-CoV-2 assay is a nucleic acid amplification test intended for the qualitative detection of RNA from SARS-CoV-2 isolated and purified from nasopharyngeal (JOCKEY VALET),oropharyngeal (OP), nasal swab, sputum, and bronchoalveolar lavage (BAL) specimens from patients with signs and symptoms of infection who are suspected of COVID-19. Results are for the identification of SARS-CoV-2 RNA. The SARS-CoV-2 RNA is generally detectable during the acute phase of infection. The Aptima SARS-CoV-2 Assay on the [employer] and Media[employer] Fusion system is intended for use by laboratory personnel specifically instructed and trained in the operation of the [place] and [employer] Fusion system. The Aptima SARS-CoV-2 assay is only for use under the Food and Drug Administration Emergency Use Authorization. Testing is limited to laboratories certified under the Clinical Laboratory Improvement Amendments of 1988 (CLIA), 42 U.S.C. ???263a, to perform high complexity tests. Not Detected: Not detected does not preclude SARS-CoV-2 infection and should not be used as the sole basis for patient management decisions. Not detected results must be combined with clinical observations, patient history, and epidemiological information. Performed By: #### [id number] #### [facility] [address] [facility]. [address] POC STREP SCREENon 0 STREP POC Positive Abnormal NEG [facility] Comment on above: Result Comment: Perf ormed in Emergency Department. Performed By: #### [id number] #### [facility] [address] CBC Auto Differentialon - Basophils (Bld) [#/Vol] 0.00 10*3/uL [place] Basophils/100 WBC (Bld) 0 % 0 - 2 % [place] Differential Type NOT REPORTED [place] Eosinophils (Bld) [#/Vol] 0.10 10*3/uL [place] Eosinophils/100 WBC (Bld) 1 % 0 - 4 % [place] Erythrocyte distribution width (RBC) [Ratio] 12.8 % 11.5 - 14.9 % [place] Hematocrit (Bld) [Volume fraction] 38.8 % 36 - 46 % [place] Hemoglobin (Bld) [Mass/Vol] 12.5 g/dL 12 - 16 g/dL [place] Lymphocytes (Bld) [#/Vol] 3.30 10*3/uL [place] Lymphocytes/100 WBC (Bld) 31 % 25 - 45 % [place] MCH (RBC) [Entitic mass] 27.7 pg 25 - 35 pg [place] MCHC (RBC) [Mass/Vol] 32.2 g/dL 31 - 37 g/dL [place] MCV (RBC) [Entitic vol] 85.9 fL 78 - 102 fL [place] Monocytes (Bld) [#/Vol] 0.90 10*3/uL [place] Monocytes/100 WBC (Bld) 8 % 2 - 8 % [place] Platelet mean volume (Bld) [Entitic vol] 7.1 fL 6 - 12 fL [place] Platelets (Bld) [#/Vol] 336 10*3/uL [place] Platelets (Bld) [#/Vol] NOT REPORTED [place] RBC (Bld) [#/Vol] 4.52 10*6/uL 4 - 5.2 m/uL [place] RBC morphology finding Nom (Bld) NOT REPORTED [place] Segmented neutrophils/100 WBC (Bld) 60 % 34 - 64 % [place] Segs Absolute 6.20 [place] WBC (Bld) [#/Vol] NOT REPORTED per 100 WBC [place] WBC (Bld) [#/Vol] 10.6 10*3/uL [place] WBC Morphology NOT REPORTED [place], [place] Comprehensive Metabolic Pane mark 05-26-2020 Albumin [Mass/Vol] 3.9 g/dL 3.5 - 5.2 g/dL [place] Albumin/Globulin [Mass ratio] NOT REPORTED [place] ALP [Catalytic activity/Vol] 86 U/L 35 - 104 U/L [place] ALT [Catalytic activity/Vol] 7 U/L 5 - 33 U/L [place] Anion gap [Moles/Vol] 9 mmol/L 9 - 17 mmol/L [place] AST [Catalytic activity/Vol] 12 U/L <32 [place] Bilirubin Ql (U) 0.35 mg/dL 0.3 - 1.2 mg/dL [place] Bun/Cre Ratio NOT REPORTED [place] Calcium [Mass/Vol] 9.2 mg/dL 8.6 - 10. 4 mg/dL [place] Chloride [Moles/Vol] 106 mmol/L 98 - 107 mmol/L [place] CO2 [Moles/Vol] 27 mmol/L 20 - 31 mmol/L [place] Creatinine [Mass/Vol] 0.81 mg/dL 0.5 - 0.9 mg/dL [place] GFR NOT REPORTED >60 mL/min [place] GFR Non- Pediatric GFR requires additional information. Refer to NKDEP website for calculator. >60 mL/min [place] GFR/1.73 sq M predicted among non-blacks MDRD (S/P/Bld) [Vol rate/Area] [place] Comment on above: Average GFR for <20 years old not available. Chronic Kidney Disease: <60 mL/min/1.73sq m Kidney failure: <15 mL/min/1.73sq m eGFR calculated using average adult body mass. Additional eGFR calculator available at: http://www.[employer].Eventtus/multiple_crcl_2012.htm GFR/1.73 sq M predicted among non-blacks MDRD (S/P/Bld) [Vol rate/Area] NOT REPORTED [place] Glucose [Mass/Vol] 79 mg/dL 70 - 99 mg/dL [place] Interpretation and review of laboratory results Abnormal [place] Potassium [Moles/Vol] 3.6 mmol/L Low 3.7 - 5.3 mmol/L [place] Protein [Mass/Vol] 7.9 g/dL 6.4 - 8.3 g/dL [place] Sodium [Moles/Vol] 142 mmol/L 135 - 144 mmol/L [place] Urea nitrogen [Mass/Vol] 9 mg/dL 6 - 20 mg/dL [place] HCG, ,Urineon 05-26 Beta HCG ( test) Ql (U) Negative NEGATIVE [place] Comment on above: Specimens with hCG l evels near the threshold of the test (25 mIU/mL) may give a negative or indeterminate result. In such cases, another test should be performed with a new specimen in 48-72 hours. If early is suspected clinically in this setting, correlation with quantitative serum b-hCG level is suggested. Lipaseon 05-26-2020 Lipase [Catalytic activity/Vol] 20 U/L 13 - 60 U/L [place] Otheron 05-26-2020 Immature granulocytes (Bld) [#/Vol] NOT REPORTED [place] Urinalysis Reflex to Culture on 05-26-2020 Bilirubin Urine Presumptive positive. Unable to confirm due to unavailability of reagent. Abnormal NEGATIVE [place] Color, UA YELLOW YELLOW [place] Glucose, Ur Negative NEGATIVE [place] Interpretation and review of laboratory results Abnormal [place] Ketones Ql (U) Negative NEGATIVE [place] Leukocyte esterase Test strip Ql (U) MOD Abnormal NEGATIVE [place] Nitrite, Urine Negative NEGATIVE [place] pH, UA 6.5 [place], [place] Protein (U) [Mass/Vol] TRACE Abnormal NEGATIVE [place] Specific [place], UA 1.022 [place], [place] Turbidity UA TURBID Abnormal CLEAR [place] Urinalysis Comments NOT REPORTED [place] Urine Hgb TRACE Abnormal NEGATIVE [place] Urobilinogen, Urine Normal Normal [place] Otheron 03-10-2020 Direct Exam Negative [place] VAGINITIS DNA PROBEon 2019 Direct Exam Positive Abnormal [place] Direct Exam Method of testing is a DNA probe intended for detection and identification of Bandar species, Gardnerella vaginalis, and Trichomonas vaginalis nucleic acid in vaginal fluid specimens from patients with symptoms of vaginitis/vaginosis . [place] Interpretation and review of laboratory results Abnormal [place] Special Requests NOT REPORTED [place] Specimen Description .VAGINA [place] Basic Metabolic Panel w/ Ref jonathan to MGon 01-07-2020 Anion gap [Moles/Vol] 9 mmol/L 9 - 17 mmol/L [place] Bun/Cre Ratio NOT REPORTED [place] Calcium [Mass/Vol] 9.1 mg/dL 8.6 - 10. 4 mg/dL [place] Chloride [Moles/Vol] 106 mmol/L 98 - 107 mmol/L [place] CO2 [Moles/Vol] 23 mmol/L 20 - 31 mmol/L [place] Creatinine [Mass/Vol] 0.69 mg/dL 0.5 - 0.9 mg/dL [place] GFR NOT REPORTED >60 mL/min [place] GFR Non- Pediatric GFR requires additional information. Refer to NKDEP website for calculator. >60 mL/min [place] GFR/1.73 sq M predicted among non-blacks MDRD (S/P/Bld) [Vol rate/Area] NOT REPORTED [place] GFR/1.73 sq M predicted among non-blacks MDRD (S/P/Bld) [Vol rate/Area] [place] Comment on above: Average GFR for <20 years old not available. Chronic Kidney Disease: <60 mL/min/1.73sq m Kidney failure: <15 mL/min/1.73sq m eGFR calculated using average adult body mass. Additional eGFR calculator available at: http://www.[employer].Eventtus/multiple_crcl_2012.htm Glucose [Mass/Vol] 96 mg/dL 70 - 99 mg/dL [place] Potassium [Moles/Vol] 4.2 mmol/L 3.7 - 5.3 mmol/L [place] Sodium [Moles/Vol] 138 mmol/L 135 - 144 mmol/L [place] Urea nitrogen [Mass/Vol] 9 mg/dL 6 - 20 mg/dL [place] D-Dimer, Quantitativeon 12-28 D-Dimer, Quant 0.18 mg/L FEU [place] Comment on above: When combined with a low clinical probability, a D dimer value of <0.50 mg/L FEU is considered negative for DVT and PE (negative predictive value of 98%, sensitivity of 97%). If this test is not being used to help rule out DVT and PE, then the following reference range should be utilized: 0.00 - 1.02 mg/L FEU. The [employer] D-Dimer assay is intended for use as an aid in the diagnosis of venous thromboembolism (DVT and PE) and the results should be interpreted in conjunction with the patient's medical history, clinical presentation, and other findings. Elevated levels of D-dimer activity can be seen in any state of coagulation activation and is not recommended in patients with therapeutic dose anticoagulant therapy for >24 hours, fibrinolytic therapy within the previous 7 days, trauma or surgery within the previous 4 weeks, disseminated malignancies, aortic aneurysm, sepsis, severe infections, pneumonia, severe skin infections, liver cirrhosis, advanced age, coronary disease, diabetes, and . A very low percentage of patients with DVT may yield D-dimer results below the cutoff of 0.5 mg/L FEU. This is known to be more prevalent in patients with distal DVT. XR FEMUR RIGHT (MIN 2 VIEWS) on 01-07-2020 Mike, [facility] Incoming Radiant Results From [facility] - 01/07/2020 10:37 AM EDT EXAMINATION: 2 XRAY VIEWS OF THE RIGHT FEMUR 01/07/2020 10:31 am COMPARISON: None. HISTORY: ORDERING SYSTEM PROVIDED HISTORY: posterior thigh pain TECHNOLOGIST PROVIDED HISTORY: posterior thigh pain FINDINGS: No fracture or osseous malalignment. No aggressive osseous lesion. No substantial degenerative change. IMPRESSION: No acute osseous abnormality. [place] EXAMINATION: 2 XRAY VIEWS OF THE RIGHT FEMUR 01/07/2020 10:31 am COMPARISON: None. HISTORY: ORDERING SYSTEM PROVIDED HISTORY: posterior thigh pain TECHNOLOGIST PROVIDED HISTORY: posterior thigh pain FINDINGS: No fracture or osseous malalignment. No aggressive osseous lesion. No substantial degenerative change. [place] No acute osseous abnormality. [place] CBC Auto Differentialon 10-0 Basophils (Bld) [#/Vol] 0.06 10*3/uL [place] Basophils/100 WBC (Bld) 0 % 0 - 2 % [place] Differential Type NOT REPORTED [place] Eosinophils (Bld) [#/Vol] 0.25 10*3/uL [place] Eosinophils/100 WBC (Bld) 2 % 1 - 4 % [place] Erythrocyte distribution width (RBC) [Ratio] 13.9 % 11.8 - 14.4 % [place] Hematocrit (Bld) [Volume fraction] 26.2 % Low 36.3 - 47.1 % [place] Hemoglobin (Bld) [Mass/Vol] 8.3 g/dL Low 11.9 - 15.1 g/dL [place] Immature granulocytes (Bld) [#/Vol] 0.12 10*3/uL [place] Immature granulocytes (Bld) [#/Vol] 1 % High 0 [place] Interpretation and review of laboratory results Abnormal [place] Lymphocytes (Bld) [#/Vol] 3.87 10*3/uL [place] Lymphocytes/100 WBC (Bld) 25 % 25 - 45 % [place] MCH (RBC) [Entitic mass] 27.9 pg 25 - 35 pg [place] MCHC (RBC) [Mass/Vol] 31.7 g/dL 28.4 - 34.8 g/dL [place] MCV (RBC) [Entitic vol] 88.2 fL 78 - 102 fL [place] Monocytes (Bld) [#/Vol] 1.25 10*3/uL [place] Monocytes/100 WBC (Bld) 8 % 2 - 8 % [place] Platelet mean volume (Bld) [Entitic vol] 9.6 fL 8.1 - 13.5 fL [place] Platelets (Bld) [#/Vol] NOT REPORTED [place] Platelets (Bld) [#/Vol] 276 10*3/uL [place] RBC (Bld) [#/Vol] 2.97 10*6/uL Low 3.95 - 5.1 1 m/uL [place], [place] RBC morphology finding Nom (Bld) NOT REPORTED [place] Segmented neutrophils/100 WBC (Bld) 64 % 34 - 64 % [place] Segs Absolute 10.06 High [place] WBC (Bld) [#/Vol] 0.0 10*3/uL 0.0 per 100 WBC M [place] WBC (Bld) [#/Vol] 15.6 10*3/uL [place] WBC Morphology NOT REPORTED [place], [place] Comprehensive Metabolic Pane mark 08-02-2019 Albumin [Mass/Vol] 2.5 g/dL Low 3.2 - 4.5 g/dL [place] Albumin/Globulin [Mass ratio] 0.9 {ratio} Low [place] ALP [Catalytic activity/Vol] 113 U/L 47 - 119 U/L [place] ALT [Catalytic activity/Vol] 10 U/L 5 - 33 U/L [place] Anion gap [Moles/Vol] 10 mmol/L 9 - 17 mmol/L [place] AST [Catalytic activity/Vol] 25 U/L <32 [place] Bilirubin Ql (U) <0.10 Low 0.3 - 1.2 mg/dL [place], [place] Bun/Cre Ratio NOT REPORTED [place], [place] Calcium [Mass/Vol] 8.2 mg/dL Low 8.4 - 10. 2 mg/dL [place] Chloride [Moles/Vol] 105 mmol/L 98 - 107 mmol/L [place] CO2 [Moles/Vol] 24 mmol/L 20 - 31 mmol/L [place] Creatinine [Mass/Vol] 0.57 mg/dL 0.5 - 0.9 mg/dL [place] GFR NOT REPORTED >60 mL/min [place] GFR Non- Pediatric GFR requires additional information. Refer to [facility] website for calculator. >60 mL/min [place] GFR/1.73 sq M predicted among non-blacks MDRD (S/P/Bld) [Vol rate/Area] NOT REPORTED [place] GFR/1.73 sq M predicted among non-blacks MDRD (S/P/Bld) [Vol rate/Area] [place] Comment on above: Average GFR for <20 years old not available. Chronic Kidney Disease: <60 mL/min/1.73sq m Kidney failure: <15 mL/min/1.73sq m eGFR calculated using average adult body mass. Additional eGFR calculator available at: http://www.HealthyOut/multiple_crcl_2012.htm Glucose [Mass/Vol] 90 mg/dL 60 - 100 mg/dL [place] Interpretation and review of laboratory results Abnormal [place] Potassium [Moles/Vol] 4.0 mmol/L 3.6 - 4.9 mmol/L [place] Protein [Mass/Vol] 5.4 g/dL Low 6 - 8 g/dL [place] Sodium [Moles/Vol] 139 mmol/L 135 - 144 mmol/L [place] Urea nitrogen [Mass/Vol] 8 mg/dL 5 - 18 mg/dL [place] CBC WITH AUTO DIFFERENTIALon 08-01-2019 Basophils (Bld) [#/Vol] 0.00 10*3/uL [place] Basophils/100 WBC (Bld) 0 % 0 - 2 % [place] Differential Type NOT REPORTED [place] Eosinophils (Bld) [#/Vol] 0.18 10*3/uL [place] Eosinophils/100 WBC (Bld) 1 % 1 - 4 % [place] Erythrocyte distribution width (RBC) [Ratio] 14.0 % 11.8 - 14.4 % [place] Hematocrit (Bld) [Volume fraction] 27.1 % Low 36.3 - 47.1 % [place] Hemoglobin (Bld) [Mass/Vol] 8.6 g/dL Low 11.9 - 15.1 g/dL [place] Immature granulocytes (Bld) [#/Vol] 0.18 10*3/uL [place] Immature granulocytes (Bld) [#/Vol] 1 % High 0 [place] Interpretation and review of laboratory results Abnormal [place] Lymphocytes (Bld) [#/Vol] 3.58 10*3/uL [place] Lymphocytes/100 WBC (Bld) 20 % Low 25 - 45 % [place] MCH (RBC) [Entitic mass] 27.6 pg 25 - 35 pg [place] MCHC (RBC) [Mass/Vol] 31.7 g/dL 28.4 - 34.8 g/dL [place] MCV (RBC) [Entitic vol] 86.9 fL 78 - 102 fL [place] Monocytes (Bld) [#/Vol] 1.79 10*3/uL [place] Monocytes/100 WBC (Bld) 10 % High 2 - 8 % [place] Morphology [place] (Bld) [Interp] Normal [place] Platelet mean volume (Bld) [Entitic vol] 9.6 fL 8.1 - 13.5 fL [place], [place] Platelets (Bld) [#/Vol] 273 10*3/uL [place] Platelets (Bld) [#/Vol] NOT REPORTED [place] RBC (Bld) [#/Vol] 3.12 10*6/uL Low 3.95 - 5.1 1 m/uL [place] RBC morphology finding Nom (Bld) NOT REPORTED [place] Segmented neutrophils/100 WBC (Bld) 68 % High 34 - 64 % [place] Segs Absolute 12.17 High [place] WBC (Bld) [#/Vol] 17.9 10*3/uL [place] WBC (Bld) [#/Vol] 0.0 10*3/uL 0.0 per 100 WBC [place] WBC Morphology NOT REPORTED [place] Basophils (Bld) [#/Vol] 0.00 10*3/uL [place] Basophils/100 WBC (Bld) 0 % 0 - 2 % [place] Differential Type NOT REPORTED [place] Eosinophils (Bld) [#/Vol] 0.00 10*3/uL [place] Eosinophils/100 WBC (Bld) 0 % Low 1 - 4 % [place] Erythrocyte distribution width (RBC) [Ratio] 13.8 % 11.8 - 14.4 % [place] Hematocrit (Bld) [Volume fraction] 29.8 % Low 36.3 - 47.1 % [place] Hemoglobin (Bld) [Mass/Vol] 9.2 g/dL Low 11.9 - 15.1 g/dL [place] Immature granulocytes (Bld) [#/Vol] 0 % 0 [place] Immature granulocytes (Bld) [#/Vol] 0.00 10*3/uL [place] Interpretation and review of laboratory results Abnormal [place] Lymphocytes (Bld) [#/Vol] 3.83 10*3/uL [place] Lymphocytes/100 WBC (Bld) 17 % Low 25 - 45 % [place] MCH (RBC) [Entitic mass] 26.8 pg 25 - 35 pg [place] MCHC (RBC) [Mass/Vol] 30.9 g/dL 28.4 - 34.8 g/dL [place] MCV (RBC) [Entitic vol] 86.9 fL 78 - 102 fL [place] Monocytes (Bld) [#/Vol] 1.58 10*3/uL [place] Monocytes/100 WBC (Bld) 7 % 2 - 8 % [place] Morphology [place] (Bld) [Interp] Normal [place] Platelet mean volume (Bld) [Entitic vol] 9.7 fL 8.1 - 13.5 fL [place] Platelets (Bld) [#/Vol] 291 10*3/uL [place] Platelets (Bld) [#/Vol] NOT REPORTED [place] RBC (Bld) [#/Vol] 3.43 10*6/uL Low 3.95 - 5.1 1 m/uL [place] RBC morphology finding Nom (Bld) NOT REPORTED [place] Segmented neutrophils/100 WBC (Bld) 76 % High 34 - 64 % [place] Segs Absolute 17.09 High [place] WBC (Bld) [#/Vol] 22.5 10*3/uL [place] WBC (Bld) [#/Vol] 0.0 10*3/uL 0.0 per 100 WBC [place] WBC Morphology NOT REPORTED [place] COMPREHENSIVE METABOLIC PANE Mark 08-01-2019 Albumin [Mass/Vol] 2.3 g/dL Low 3.2 - 4.5 g/dL [place] Albumin/Globulin [Mass ratio] 0.8 {ratio} Low [place] ALP [Catalytic activity/Vol] 126 U/L High 47 - 119 U/L [place] ALT [Catalytic activity/Vol] 9 U/L 5 - 33 U/L [place] Anion gap [Moles/Vol] 11 mmol/L 9 - 17 mmol/L [place] AST [Catalytic activity/Vol] 32 U/L High <32 [place] Bilirubin Ql (U) 0.29 mg/dL Low 0.3 - 1.2 mg/dL [place] Bun/Cre Ratio NOT REPORTED [place] Calcium [Mass/Vol] 8.5 mg/dL 8.4 - 10. 2 mg/dL [place] Chloride [Moles/Vol] 108 mmol/L High 98 - 107 mmol/L [place] CO2 [Moles/Vol] 22 mmol/L 20 - 31 mmol/L [place] Creatinine [Mass/Vol] 0.68 mg/dL 0.5 - 0.9 mg/dL [place] GFR NOT REPORTED >60 mL/min [place] GFR Non- Pediatric GFR requires additional information. Refer to [facility] website for calculator. >60 mL/min [place] GFR/1.73 sq M predicted among non-blacks MDRD (S/P/Bld) [Vol rate/Area] NOT REPORTED [place] GFR/1.73 sq M predicted among non-blacks MDRD (S/P/Bld) [Vol rate/Area] [place] Comment on above: Average GFR for <20 years old not available. Chronic Kidney Disease: <60 mL/min/1.73sq m Kidney failure: <15 mL/min/1.73sq m eGFR calculated using average adult body mass. Additional eGFR calculator available at: http://www.HealthyOut/multiple_crcl_2012.htm Glucose [Mass/Vol] 87 mg/dL 60 - 100 mg/dL [place] Interpretation and review of laboratory results Abnormal [place] Potassium [Moles/Vol] 4.1 mmol/L 3.6 - 4.9 mmol/L [place] Protein [Mass/Vol] 5.3 g/dL Low 6 - 8 g/dL [place] Sodium [Moles/Vol] 141 mmol/L 135 - 144 mmol/L [place] Urea nitrogen [Mass/Vol] 10 mg/dL 5 - 18 mg/dL [place] COMPREHENSIVE METABOLIC PANE Mark 07-31-2019 Albumin [Mass/Vol] 2.5 g/dL Low 3.2 - 4.5 g/dL [place] Albumin/Globulin [Mass ratio] 0.8 {ratio} Low [place] ALP [Catalytic activity/Vol] 145 U/L High 47 - 119 U/L [place] ALT [Catalytic activity/Vol] 9 U/L 5 - 33 U/L [place] Anion gap [Moles/Vol] 12 mmol/L 9 - 17 mmol/L [place] AST [Catalytic activity/Vol] 32 U/L High <32 [place] Bilirubin Ql (U) 0.41 mg/dL 0.3 - 1.2 mg/dL [place] Bun/Cre Ratio NOT REPORTED [place] Calcium [Mass/Vol] 8.4 mg/dL 8.4 - 10. 2 mg/dL [place] Chloride [Moles/Vol] 108 mmol/L High 98 - 107 mmol/L [place] CO2 [Moles/Vol] 20 mmol/L 20 - 31 mmol/L [place] Creatinine [Mass/Vol] 0.97 mg/dL High 0.5 - 0.9 mg/dL [place] GFR NOT REPORTED >60 mL/min [place] GFR Non- Pediatric GFR requires additional information. Refer to [facility] website for calculator. >60 mL/min [place] GFR/1.73 sq M predicted among non-blacks MDRD (S/P/Bld) [Vol rate/Area] NOT REPORTED [place] GFR/1.73 sq M predicted among non-blacks MDRD (S/P/Bld) [Vol rate/Area] [place] Comment on above: Average GFR for <20 years old not available. Chronic Kidney Disease: <60 mL/min/1.73sq m Kidney failure: <15 mL/min/1.73sq m eGFR calculated using average adult body mass. Additional eGFR calculator available at: http://www.HealthyOut/multiple_crcl_2012.htm Glucose [Mass/Vol] 102 mg/dL High 60 - 100 mg/dL [place] Interpretation and review of laboratory results Abnormal [place] Potassium [Moles/Vol] 4.1 mmol/L 3.6 - 4.9 mmol/L [place] Protein [Mass/Vol] 5.7 g/dL Low 6 - 8 g/dL [place] Sodium [Moles/Vol] 140 mmol/L 135 - 144 mmol/L [place] Urea nitrogen [Mass/Vol] 11 mg/dL 5 - 18 mg/dL [place] CBC auto differentialon 07-02 0-2018 Basophils (Bld) [#/Vol] 0.03 10*3/uL [place] Basophils/100 WBC (Bld) 0 % 0 - 2 % [place] Differential Type NOT REPORTED [place] Eosinophils (Bld) [#/Vol] 0.15 10*3/uL [place] Eosinophils/100 WBC (Bld) 1 % 1 - 4 % [place] Erythrocyte distribution width (RBC) [Ratio] 13.7 % 11.8 - 14.4 % [place] Hematocrit (Bld) [Volume fraction] 33.7 % Low 36.3 - 47.1 % [place] Hemoglobin (Bld) [Mass/Vol] 10.6 g/dL Low 11.9 - 15.1 g/dL [place] Immature granulocytes (Bld) [#/Vol] 0.10 10*3/uL [place] Immature granulocytes (Bld) [#/Vol] 1 % High 0 [place] Interpretation and review of laboratory results Abnormal [place] Lymphocytes (Bld) [#/Vol] 2.86 10*3/uL [place] Lymphocytes/100 WBC (Bld) 22 % Low 25 - 45 % [place] MCH (RBC) [Entitic mass] 27.5 pg 25 - 35 pg [place] MCHC (RBC) [Mass/Vol] 31.5 g/dL 28.4 - 34.8 g/dL [place] MCV (RBC) [Entitic vol] 87.5 fL 78 - 102 fL [place] Monocytes (Bld) [#/Vol] 0.84 10*3/uL [place] Monocytes/100 WBC (Bld) 7 % 2 - 8 % [place] Platelet mean volume (Bld) [Entitic vol] 9.5 fL 8.1 - 13.5 fL [place] Platelets (Bld) [#/Vol] 346 10*3/uL [place] Platelets (Bld) [#/Vol] NOT REPORTED [place] RBC (Bld) [#/Vol] 3.85 10*6/uL Low 3.95 - 5.1 1 m/uL [place] RBC morphology finding Nom (Bld) NOT REPORTED [place] Segmented neutrophils/100 WBC (Bld) 69 % High 34 - 64 % [place] Segs Absolute 8.93 High [place] WBC (Bld) [#/Vol] 12.9 10*3/uL [place] WBC (Bld) [#/Vol] 0.0 10*3/uL 0.0 per 100 WBC [place] WBC Morphology NOT REPORTED [place] Comprehensive Metabolic Pane mark 07-29-2019 Albumin [Mass/Vol] 3.1 g/dL Low 3.2 - 4.5 g/dL [place] Albumin/Globulin [Mass ratio] 0.9 {ratio} Low [place] ALP [Catalytic activity/Vol] 178 U/L High 47 - 119 U/L [place] ALT [Catalytic activity/Vol] 8 U/L 5 - 33 U/L [place] Anion gap [Moles/Vol] 11 mmol/L 9 - 17 mmol/L [place] AST [Catalytic activity/Vol] 13 U/L <32 [place] Bilirubin Ql (U) 0.19 mg/dL Low 0.3 - 1.2 mg/dL [place] Bun/Cre Ratio NOT REPORTED [place] Calcium [Mass/Vol] 8.6 mg/dL 8.4 - 10. 2 mg/dL [place] Chloride [Moles/Vol] 105 mmol/L 98 - 107 mmol/L [place] CO2 [Moles/Vol] 21 mmol/L 20 - 31 mmol/L [place] Creatinine [Mass/Vol] 0.73 mg/dL 0.5 - 0.9 mg/dL [place] GFR NOT REPORTED >60 mL/min [place] GFR Non- Pediatric GFR requires additional information. Refer to [facility] website for calculator. >60 mL/min [place] GFR/1.73 sq M predicted among non-blacks MDRD (S/P/Bld) [Vol rate/Area] NOT REPORTED [place] GFR/1.73 sq M predicted among non-blacks MDRD (S/P/Bld) [Vol rate/Area] [place] Comment on above: Average GFR for <20 years old not available. Chronic Kidney Disease: <60 mL/min/1.73sq m Kidney failure: <15 mL/min/1.73sq m eGFR calculated using average adult body mass. Additional eGFR calculator available at: http://www.HealthyOut/multiple_crcl_2012.htm Glucose [Mass/Vol] 111 mg/dL High 60 - 100 mg/dL [place] Interpretation and review of laboratory results Abnormal [place] Potassium [Moles/Vol] 3.8 mmol/L 3.6 - 4.9 mmol/L [place] Protein [Mass/Vol] 6.7 g/dL 6 - 8 g/dL [place] Sodium [Moles/Vol] 137 mmol/L 135 - 144 mmol/L [place] Urea nitrogen [Mass/Vol] 11 mg/dL 5 - 18 mg/dL [place] Protein / Creatinine Ratio, Urineon 07-29-2019 Creatinine, Ur 232.1 mg/dL High 28 - 217 mg/dL [place] Interpretation and review of laboratory results Abnormal [place] Protein (U) [Mass/Vol] 23 mg/dL [place] Comment on above: No normal range esta blished. Urine Total Protein Creatinine Ratio 0.10 [place] T. pallidum Abon 07-29-2019 T. pallidum, IgG NONREACTIVE NONREACTIVE [place] Comment on above: T. pallidum antibodies are not detected. There is no serological evidence of infection with T. pallidum (early primary syphilis cannot be excluded). Retest in 2-4 weeks if syphilis is clinically suspect. TYPE AND SCREENon 07-29-2019 ABO/Rh Positive [place], KY Arm Band Number BE [id number] [place], [place] Expiration Date 08/01/2019 [place] Urine Drug Screenon 07-29-20 19 Amphetamine Screen, Ur Negative NEGATIVE [place], [place] Comment on above: (Positive cutoff 1000 ng/mL) Barbiturate Screen, Ur Negative NEGATIVE [place] Comment on above: (Positive cutoff 200 ng/mL) Benzodiazepine Screen, Urine Negative NEGATIVE [place] Comment on above: (Positive cutoff 200 ng/mL) Buprenorphine Urine NOT REPORTED NEGATIVE [place] Cannabinoid Scrn, Ur Negative NEGATIVE [place], [place] Comment on above: (Positive cutoff 50 ng/mL) Cocaine Metabolite, Urine Negative NEGATIVE [place] Comment on above: (Positive cutoff 300 ng/mL) MDMA, Urine NOT REPORTED NEGATIVE [place] Methadone Screen, Urine Negative NEGATIVE [place] Comment on above: (Positive cutoff 300 ng/mL) Methamphetamine, Urine NOT REPORTED NEGATIVE [place] Opiates, Urine Negative NEGATIVE [place], [place] Comment on above: (Positive cutoff 300 ng/mL) Oxycodone Screen, Ur Negative NEGATIVE [place], [place] Comment on above: (Positive cutoff 100 ng/mL) Phencyclidine, Urine Negative NEGATIVE [place], [place] Comment on above: (Positive cutoff 25 ng/mL) Propoxyphene, Urine NOT REPORTED NEGATIVE [place] Test Information Assay provides medical screening only. The absence of expected drug(s) and/or metabolite(s) may indicate diluted or adulterated urine, limitations of testing or timing of collection. [place] Comment on above: Testing for legal pu rposes should be confirmed by another method. To request confirmation of test result, please call the lab within 7 days of sample submission. Tricyclic Antidepressants, Urine NOT REPORTED NEGATIVE [place] CBCon 07-04-2019 Erythrocyte distribution width (RBC) [Ratio] 12.7 % 11.8 - 14.4 % [place] Hematocrit (Bld) [Volume fraction] 33.0 % Low 36.3 - 47.1 % [place] Hemoglobin (Bld) [Mass/Vol] 10.0 g/dL Low 11.9 - 15.1 g/dL [place] Interpretation and review of laboratory results Abnormal [place] MCH (RBC) [Entitic mass] 27.5 pg 25 - 35 pg [place] MCHC (RBC) [Mass/Vol] 30.3 g/dL 28.4 - 34.8 g/dL [place] MCV (RBC) [Entitic vol] 90.9 fL 78 - 102 fL [place] Platelet mean volume (Bld) [Entitic vol] 9.3 fL 8.1 - 13.5 fL [place], [place] Platelets (Bld) [#/Vol] 316 10*3/uL [place] RBC (Bld) [#/Vol] 3.63 10*6/uL Low 3.95 - 5.1 1 m/uL [place] WBC (Bld) [#/Vol] 0.0 10*3/uL 0.0 per 100 WBC [place] WBC (Bld) [#/Vol] 18.4 10*3/uL [place] COMPREHENSIVE METABOLIC PANE Mark 07-04-2019 Albumin [Mass/Vol] 3 g/dL Low 3.2 - 4.5 g/dL [place] Albumin/Globulin [Mass ratio] 0.9 {ratio} Low [place] ALP [Catalytic activity/Vol] 168 U/L High 47 - 119 U/L [place] ALT [Catalytic activity/Vol] 11 U/L 5 - 33 U/L [place] Anion gap [Moles/Vol] 11 mmol/L 9 - 17 mmol/L [place] AST [Catalytic activity/Vol] 12 U/L <32 [place] Bilirubin Ql (U) 0.18 mg/dL Low 0.3 - 1.2 mg/dL [place] Bun/Cre Ratio NOT REPORTED [facility] [place] Calcium [Mass/Vol] 8.5 mg/dL 8.4 - 10. 2 mg/dL [place] Chloride [Moles/Vol] 105 mmol/L 98 - 107 mmol/L [place] CO2 [Moles/Vol] 21 mmol/L 20 - 31 mmol/L [place] Creatinine [Mass/Vol] 0.63 mg/dL 0.5 - 0.9 mg/dL [place] GFR NOT REPORTED >60 mL/min [place] GFR Non- Pediatric GFR requires additional information. Refer to [facility] website for calculator. >60 mL/min [place] GFR/1.73 sq M predicted among non-blacks MDRD (S/P/Bld) [Vol rate/Area] [place], [place] Comment on above: Average GFR for <20 years old not available. Chronic Kidney Disease: <60 mL/min/1.73sq m Kidney failure: <15 mL/min/1.73sq m eGFR calculated using average adult body mass. Additional eGFR calculator available at: http://www.[employer].Eventtus/multiple_crcl_2012.htm GFR/1.73 sq M predicted among non-blacks MDRD (S/P/Bld) [Vol rate/Area] NOT REPORTED [place], [place] Glucose [Mass/Vol] 90 mg/dL 60 - 100 mg/dL [place] Interpretation and review of laboratory results Abnormal [place] Potassium [Moles/Vol] 4.0 mmol/L 3.6 - 4.9 mmol/L [place] Protein [Mass/Vol] 6.5 g/dL 6 - 8 g/dL [place] Sodium [Moles/Vol] 137 mmol/L 135 - 144 mmol/L [place] Urea nitrogen [Mass/Vol] 8 mg/dL 5 - 18 mg/dL [place] LACTATE DEHYDROGENASEon LD 196 U/L 135 - 214 U/L [place] Microscopic Urinalysison Amorphous, UA NOT REPORTED None [place], [place] Bacteria, UA MANY Abnormal None [place] Casts UA 2 TO 5 HYALINE Reference range defined for non-centrifuged specimen. [place] Crystals UA NOT REPORTED None /HPF [place] Epithelial Cells UA 10 TO 20 [place] Interpretation and review of laboratory results Abnormal [place] Mucus, UA NOT REPORTED None [place], [place] Other Observations UA NOT REPORTED NOT REQ. [place] RBC (U) [#/Vol] 0 TO 2 [place], [place] Comment on above: Reference range defi nick for non-centrifuged specimen. Renal Epithelial, Urine NOT REPORTED 0 /HPF [place] Trichomonas, UA NOT REPORTED None [place], [place] WBC, UA 5 TO 10 [place] Yeast, UA NOT REPORTED None [place], [place] - [place] Protein / Creatinine Ratio, Urineon 07-04-2019 Creatinine, Ur 99.7 mg/dL 28 - 217 mg/dL [place] Protein (U) [Mass/Vol] 14 mg/dL [place], [place] Comment on above: No normal range esta blished. Urine Total Protein Creatinine Ratio 0.14 [place] URIC ACIDon 07-04-2019 Urate [Mass/Vol] 5.6 mg/dL 2.4 - 5.7 mg/dL [place] Urinalysis Reflex to Culture on 07-04-2019 Bilirubin Urine Negative NEGATIVE [place] Color, UA YELLOW YELLOW [place], [place] Glucose, Ur Negative NEGATIVE [place] Interpretation and review of laboratory results Abnormal [place] Ketones Ql (U) Negative NEGATIVE [place], [place] Leukocyte esterase Test strip Ql (U) MODERATE Abnormal NEGATIVE [place] Nitrite, Urine Negative NEGATIVE [place] pH, UA 6.5 [place] Protein (U) [Mass/Vol] Negative NEGATIVE [place] Specific [place], UA 1.014 [place], [place] Turbidity UA CLOUDY Abnormal CLEAR [place] Urinalysis Comments NOT REPORTED [place], [place] Urine Hgb Negative NEGATIVE [place] Urobilinogen, Urine Normal Normal [place] VAGINITIS DNA PROBEon 2018 Direct Exam POSITIVE for Bandar sp. NEGATIVE for Gardnerella vaginalis NEGATIVE for Trichomonas vaginalis Method of testing is a DNA probe intended for detection and identification of Bandar species, Gardnerella vaginalis, and Trichomonas vaginalis nucleic acid in vaginal fluid specimens from patients with symptoms of vaginitis/vaginosis . Abnormal [place] Interpretation and review of laboratory results Abnormal [place] Special Requests NOT REPORTED [place] Specimen Description .VAGINA [place], [place] CBC Auto Differentialon 06-01 Basophils (Bld) [#/Vol] 0.04 10*3/uL [place] Basophils/100 WBC (Bld) 0 % 0 - 2 % [place] Differential Type NOT REPORTED [place] Eosinophils (Bld) [#/Vol] 0.23 10*3/uL [place] Eosinophils/100 WBC (Bld) 2 % 1 - 4 % [place] Erythrocyte distribution width (RBC) [Ratio] 12.5 % 11.8 - 14.4 % [place] Hematocrit (Bld) [Volume fraction] 36.6 % 36.3 - 47.1 % [place] Hemoglobin (Bld) [Mass/Vol] 11.2 g/dL Low 11.9 - 15.1 g/dL [place] Immature granulocytes (Bld) [#/Vol] 1 % High 0 [place] Immature granulocytes (Bld) [#/Vol] 0.13 10*3/uL [place] Interpretation and review of laboratory results Abnormal [place] Lymphocytes (Bld) [#/Vol] 2.14 10*3/uL [place] Lymphocytes/100 WBC (Bld) 15 % Low 25 - 45 % [place] MCH (RBC) [Entitic mass] 27.7 pg 25 - 35 pg [place] MCHC (RBC) [Mass/Vol] 30.6 g/dL 28.4 - 34.8 g/dL [place] MCV (RBC) [Entitic vol] 90.6 fL 78 - 102 fL [place] Monocytes (Bld) [#/Vol] 1.42 10*3/uL High [place] Monocytes/100 WBC (Bld) 10 % High 2 - 8 % [place] Platelet mean volume (Bld) [Entitic vol] 9.5 fL 8.1 - 13.5 fL [place] Platelets (Bld) [#/Vol] 325 10*3/uL [place] Platelets (Bld) [#/Vol] NOT REPORTED [place] RBC (Bld) [#/Vol] 4.04 10*6/uL 3.95 - 5.1 1 m/uL [place] RBC morphology finding Nom (Bld) NOT REPORTED [place] Segmented neutrophils/100 WBC (Bld) 72 % High 34 - 64 % [place] Segs Absolute 10.06 High [place] WBC (Bld) [#/Vol] 14.0 10*3/uL [place] WBC (Bld) [#/Vol] 0.0 10*3/uL 0.0 per 100 WBC M [place], [place] WBC Morphology NOT REPORTED [place] Vital Signs Date Time Vital Sign Value Performing Clinician Facility 07-23-2023 11:07-0400 Diastolic blood pressure 54 mm[Hg] Alexis Fiore MD Work Phone: [facility] 07-23-2023 11:07-0400 Heart rate 75 /min Alexis Fiore MD Work Phone: [facility] [employer] 07-23-2023 11:07-0400 SaO2% (BldA) [Mass fraction] 98 % Alexis Fiore MD Work Phone: [facility] [employer] 07-23-2023 11:07-0400 Systolic blood pressure 110 mm[Hg] [facility] 07-23-2023 11:06-0400 Body height 157.5 cm Alexis Fiore MD Work Phone: [facility] [employer] 07-23-2023 11:06-0400 Body mass index (BMI) [Ratio] 43.71 kg/m2 Alexis Fiore MD [facility] Phone[facility] 07-23-2023 11:06-0400 Body temperature 98.4 [degF] Alexis Fiore MD Work Phone: [facility] [employer] 07-23-2023 11:06-0400 Body weight 108.41 kg Alexis Fiore MD Work Phone: [facility] [employer] 07-23-2023 11:06-0400 Respiratory rate 16 /min Alexis Fiore MD Work Phone: [facility] [employer] 08-02-2022 01:38-0400 Body height 157.5 cm Stcz 2 [facility] [employer] 08-02-2022 01:38-0400 Body mass index (BMI) [Ratio] 38.41 kg/m2 Stcz 2 [facility] [employer] 08-02-2022 01:38-0400 Body weight 95.25 kg Stcz 2 [facility] [employer] 08-02-2022 01:38-0400 Heart rate 79 /min Stcz 2 [facility] [employer] 08-02-2022 01:38-0400 Respiratory rate 14 /min [facility] [facility] 08-02-2022 01:38-0400 SaO2% (BldA) [Mass fraction] 98 % Stcz 2 [facility] 06-28-2022 14:00-0400 Body height 157.5 cm Stcz 2 [facility] 06-28-2022 14:00-0400 Body mass index (BMI) [Ratio] 38.41 kg/m2 Stcz 2 [facility] 06-28-2022 14:00-0400 Body weight 95.25 kg Stcz 2 [facility] 06-28-2022 14:00-0400 Heart rate 85 /min Stcz 2 [facility] 06-28-2022 14:00-0400 Respiratory rate 18 /min Stcz 2 [facility] 06-28-2022 14:00-0400 SaO2% (BldA) [Mass fraction] 97 % Stcz 2 [facility] 09-16-2021 19:48-0500 Body height 157.5 cm Petar Archuleta MD Work Phone: [employer] 09-16-2021 19:48-0500 Body mass index (BMI) [Percentile] Per age and sex 98.07 % Petar Archuleta MD Work Phone: [employer] 09-16-2021 19:48-0500 Body mass index (BMI) [Ratio] 38.41 kg/m2 Petar Archuleta MD Work Phone: [employer] 09-16-2021 19:48-0500 Body temperature 97.5 [degF] Petar Archuleta MD Work Phone: [employer] [facility] 09-16-2021 19:48-0500 Body weight 95.25 kg Petar Archuleta MD Work Phone: [employer] 09-16-2021 19:48-0500 Diastolic blood pressure 80 mm[Hg] Petar Archuleta MD Work Phone: [employer] 09-16-2021 19:48-0500 Heart rate 90 /min Petar Archuleta MD Work Phone: [employer] 09-16-2021 19:48-0500 Respiratory rate 22 /min Petar Archuleta MD Work Phone: [employer] 09-16-2021 19:48-0500 SaO2% (BldA) [Mass fraction] 98 % Petar Archuleta MD Work Phone: [employer] 09-16-2021 19:48-0500 Systolic blood pressure 128 mm[Hg] Petar Archuleta MD Work Phone: [employer] [facility] 09-08-2021 22:29-0500 Body height 157.5 cm Ryder Bello MD [facility] 09-08-2021 22:29-0500 Body mass index (BMI) [Percentile] Per age and sex 98.08 % Ryder Bello MD [facility] 09-08-2021 22:29-0500 Body mass index (BMI) [Ratio] 38.41 kg/m2 Ryder Bello MD [facility] 09-08-2021 22:29-0500 Body temperature 98.4 [degF] Ryder Bello MD [facility] 09-08-2021 22:29-0500 Body weight 95.25 kg Ryder Bello MD [facility] 09-08-2021 22:29-0500 Diastolic blood pressure 72 mm[Hg] Ryder Bello MD [facility] 09-08-2021 22:29-0500 Heart rate 96 /min Ryder Bello MD [facility] 09-08-2021 22:29-0500 Respiratory rate 22 /min Ryder Bello MD [facility] 09-08-2021 22:29-0500 SaO2% (BldA) [Mass fraction] 98 % Ryder Bello MD [facility] 09-08-2021 22:29-0500 Systolic blood pressure 114 mm[Hg] Ryder Bello MD [facility] 06-30-2021 16:52-0400 Body temperature 97.3 [degF] Sunday Gregory MD Work Phone: [employer] Work Phone: 06-30-2021 16:52-0400 Diastolic blood pressure 88 mm[Hg] Sunday Gregory MD Work Phone: [employer] [facility] Work Phone: 06-30-2021 16:52-0400 Heart rate 75 /min Sunday Gregory MD Work Phone: [employer] Work Phone: 06-30-2021 16:52-0400 Respiratory rate 16 /min Sunday Gregory MD Work Phone: [employer] Work Phone: 06-30-2021 16:52-0400 SaO2% (BldA) [Mass fraction] 99 % Sunday Gregory MD Work Phone: [employer] [facility] Work Phone: 06-30-2021 16:52-0400 Systolic blood pressure 101 mm[Hg] Sunday Gregory MD Work Phone: [employer] Work Phone: 05-26-2020 15:49-0400 BMI (Body Mass Index) 39.87 kg/m2 Donovan GoYoDeo [facility], [place] 05-26-2020 15:49-0400 Body Temperature 96.6 [degF] [facility] [place] 05-26-2020 15:49-0400 Body weight 98.88 kg Donovan [facility] [facility] [place] 05-26-2020 15:49-0400 BP Diastolic 60 mm[Hg] Donovan [employer] , [place] 05-26-2020 15:49-0400 BP Systolic 115 mm[Hg] [facility] [place] 05-26-2020 15:49-0400 Height 157.5 cm Donovan [facility] [facility] hospitalPrecisionDem[facility] , [place] 05-26-2020 15:49-0400 Pulse (Heart Rate) 92 /min [facility] [place] 05-26-2020 15:49-0400 Pulse Oximetry 98 % Donovan Bus[facility] [place] 05-26-2020 15:49-0400 Respiratory Rate 16 /min [facility] [place] 01-07-2020 09:34-0400 BMI (Body Mass Index) 36.58 kg/m2 Ryder Allen [facility], [place] 01-07-2020 09:34-0400 Body Temperature 98.4 [degF] Ryder Bello [facility] [place] 01-07-2020 09:34-0400 Body weight 90.[address] [facility] , [place] 01-07-2020 09:34-0400 BP Diastolic 88 mm[Hg] [facility] [place] 01-07-2020 09:34-0400 BP Systolic 141 mm[Hg] Ryder Allen [facility] , [place] 01-07-2020 09:34-0400 Pulse (Heart Rate) 96 /min Ryder Allen [facility], [place] 01-07-2020 09:34-0400 Pulse Oximetry 100 % Ryder Allen [facility] , [place] 01-07-2020 09:34-0400 Respiratory Rate 16 /min Ryder Allen [facility], [place] 01-06-2020 11:34-0400 BP Diastolic 73 mm[Hg] Jaleesa Zuniga [facility] , [place] 01-06-2020 11:34-0400 BP Systolic 124 mm[Hg] Jaleesa Zuniga [facility] , [place] 01-06-2020 11:34-0400 Pulse (Heart Rate) 114 /min [facility] [place] 01-06-2020 11:34-0400 Pulse Oximetry 98 % [facility] [place] 01-06-2020 11:33-0400 BMI (Body Mass Index) 36.58 kg/m2 Jaleesa Allen [facility], [place] 01-06-2020 11:33-0400 Body Temperature 97.7 [degF] Jaleesa Zuniga [facility], [place] 01-06-2020 11:33-0400 Body weight 90.72 kg [facility] [place] 01-06-2020 11:33-0400 Height 157.5 cm [facility] [place] 01-06-2020 11:33-0400 Respiratory Rate 20 /min [facility] [place] 10-07-2019 14:07-0500 BMI (Body Mass Index) 42.3 kg/m2 [facility] Work Phone: 10-07-2019 14:07-0500 Body mass index (BMI) [Percentile] 99 {percentile} [facility] Work Phone: 10-07-2019 14:07-0500 Body Temperature 99.5 [degF] [facility] Work Phone: 10-07-2019 14:07-0500 Body weight 106.51 kg [facility] Work Phone: 10-07-2019 14:07-0500 BP Diastolic 70 mm[Hg] [facility] Work Phone: 10-07-2019 14:07-0500 BP Systolic 106 mm[Hg] [facility] Work Phone: 10-07-2019 14:07-0500 BSA (Body Surface Area) 2.06 m2 [facility] Work Phone: 10-07-2019 14:07-0500 Flow Rate 0 L/min [facility] Work Phone: 10-07-2019 14:07-0500 Height 158.75 cm [facility] Work Phone: 10-07-2019 14:07-0500 Inhaled Oxygen Concentration 21 % [facility] Work Phone: 10-07-2019 14:07-0500 Pulse (Heart Rate) 100 /min [facility] Work Phone: 10-07-2019 14:07-0500 Pulse Oximetry 98 % [facility] Work Phone: 10-07-2019 14:07-0500 Respiratory Rate 20 /min [facility] Work Phone: 08-02-2019 08:00-0400 Body Temperature 97.9 [degF] [facility], [place] 08-02-2019 08:00-0400 BP Diastolic 91 mm[Hg] [facility] , [place] 08-02-2019 08:00-0400 BP Systolic 134 mm[Hg] [facility] , [place] 08-02-2019 08:00-0400 Pulse (Heart Rate) 80 /min [facility], [place] 08-02-2019 08:00-0400 Respiratory Rate 18 /min [facility] [place] 08-01-2019 00:00-0400 Pulse Oximetry 99 % [facility] [place] 07-30-2019 06:29-0400 BMI (Body Mass Index) 46.64 kg/m2 [facility] [place] 07-30-2019 06:29-0400 Body weight 115.67 kg [facility] , [place] 07-30-2019 06:29-0400 Height 157.5 cm [facility] , [place] 07-04-2019 01:01-0400 BP Diastolic 70 mm[Hg] [facility] , [place] 07-04-2019 01:01-0400 BP Systolic 119 mm[Hg] [facility] , [place] 07-04-2019 01:01-0400 Pulse (Heart Rate) 79 /min [facility], [place] 07-04-2019 01:01-0400 Respiratory Rate 18 /min [facility], [place] 07-04-2019 00:02-0400 Body Temperature 97.9 [degF] [place], [place] Encounters Encounter Date Encounter Type Care Provider Facility Start: 12-07-2023 End: 12-07-2023 ambulatory LORENZO HARRIS Not Available Start: 08-30-2023 End: 08-31-2023 Emergency department patient visit [facility] Start: 08-15-2023 Emergency department patient visit [facility] Start: 07-23-2023 Emergency department patient visit [facility] Start: 07-23-2023 End: 07-23-2023 Emergency department patient visit Alexis Fiore MD Work Phone: [facility] Comment on above: Back strain, initial encounter (Primary Dx) Start: 01-30-2023 End: 01-31-2023 ambulatory [facility] Start: 01-30-2023 End: 01-30-2023 Subsequent hospital visit by physician Alexis Fiore MD Work Phone: [facility] Start: 11-21-2022 End: 11-21-2022 Subsequent hospital visit by physician Alexis Fiore MD Work Phone: [facility] Comment on above: Encounter for screen ing for viral disease; Class 1 obesity due to excess calories without serious comorbidity with body mass index (BMI) of 34.0 to 34.9 in adult; Chronic fatigue; Sleep difficulties; Chronic pansinusitis Start: 10-02-2022 End: 10-03-2022 Emergency department patient visit [facility] Start: 09-22-2022 End: 09-22-2022 Emergency department patient visit [facility] Start: 08-01-2022 End: 08-04-2022 ambulatory [facility] Start: 08-01-2022 End: 08-03-2022 Subsequent hospital visit by physician Zeferino Jimenez [address] [facility] Comment on above: Obstructive sleep ap dagmar Start: 06-27-2022 End: 06-30-2022 ambulatory [facility] Start: 06-27-2022 End: 06-29-2022 Subsequent hospital visit by physician Zeferino Jimenez [address] [facility] Comment on above: Sleep difficulties; Loud snoring; Chronic fatigue Start: 06-14-2022 End: 06-15-2022 Emergency department patient visit [facility] Start: 02-05-2022 End: 02-05-2022 Emergency department patient visit SUNDAY GREGORY [facility] Start: 09-16-2021 End: 09-16-2021 Emergency department patient visit Petar Archuleta MD Work Phone: [facility] ED Comment on above: COVID-19 (Primary Dx ) Start: 09-08-2021 End: 09-09-2021 Emergency department patient visit Ryder Bello MD [facility] ED Comment on above: Acute nonintractable headache, unspecified headache type (Primary Dx); Gastroesophageal reflux disease, unspecified whether esophagitis present Start: 06-30-2021 End: 06-30-2021 Emergency department patient visit Sunday Gregory MD Work Phone: [facility] ED Comment on above: Nonintractable heada kael, unspecified chronicity pattern, unspecified headache type (Primary Dx); Exposure to COVID-19 virus Start: 09-29-2020 End: 09-29-2020 Emergency department patient visit CHANDNI CARVAJALLITANOEMI Facility:[facility] Start: 08-11-2020 End: 08-11-2020 Subsequent hospital visit by physician Mitzi [facility] Comment on above: Screen for STD (sexu ally transmitted disease); Acute vaginitis; Encounter for surveillance of implantable subdermal contraceptive Start: 05-26-2020 End: 05-26-2020 Emergency department patient visit Donovan Oliver Work Phone: [facility] ED Comment on above: Nausea vomiting and diarrhea (Primary Dx); Urinary tract infection in female Start: 03-10-2020 End: 03-10-2020 Subsequent hospital visit by physician Mitzi [facility] Comment on above: Unprotected sex; Acute vaginitis; STD exposure Start: 01-07-2020 End: 01-07-2020 Emergency department patient visit Ryder Bello [facility] ED Comment on above: Right leg pain (Prim marito Dx) Start: 01-06-2020 End: 01-06-2020 Emergency department patient visit Jaleesa Zuniga Work Phone: [facility] ED Comment on above: Acute recurrent fron elyssa sinusitis (Primary Dx) Start: 10-07-2019 End: 10-07-2019 Established patient Jada [email or web address] Work Phone: [facility] Work Phone: Start: 10-07-2019 End: 10-07-2019 Established patient Jada [email or web address] Work Phone: [facility] Work Phone: Start: 10-07-2019 End: 10-07-2019 New patient Karen Charles Work Phone: [facility] Work Phone: Start: 07-29-2019 End: 08-02-2019 Evaluation and management of inpatient Willie Mckeon Work Phone: [facility] Start: 07-15-2019 End: 07-15-2019 Subsequent hospital visit by physician Mitzi [facility] Comment on above: HRP (high risk pregn sherif), third trimester; Encounter for supervision of high risk in third trimester, antepartum; 37 weeks gestation of Start: 07-03-2019 End: 07-04-2019 Subsequent hospital visit by physician Willie Mckeon Work Phone: [facility] Start: 06-28-2019 End: 06-28-2019 Subsequent hospital visit by physician Mitzi [facility] Comment on above: Anemia affecting pre gnancy in third trimester Procedures Date Procedure Procedure Detail Performing Clinician Start: 11-21-2022 Comprehensive metabo lic panel Alexis Fiore MD Work Phone: Start: 11-21-2022 Lipid panel Alexis redmond MD Work Phone: Start: 09-16-2021 Assay of lipase Shanna S Fujita DO Work Phone: Start: 09-16-2021 Radiologic exam ches t single view Shanna S Fujita DO Work Phone: Start: 09-16-2021 COVID-19, RAPID Shanna S Fujita DO Work Phone: Start: 09-09-2021 Urinalysis microscop ic only Rene Barr MD Work Phone: Start: 09-09-2021 Urine test visual color cmprsn meths Rene Barr MD Work Phone: Start: 06-30-2021 COVID-19, RAPID Debra Joe PA-C Work Phone: Start: 05-26-2020 Assay of lipase Donovan Ricketts vikram Work Phone: Start: 05-26-2020 Blood count complete auto&auto difrntl wbc Donovan Oliver Work Phone: Start: 05-26-2020 Comprehensive metabo lic panel Donovan Oliver Work Phone: Start: 05-26-2020 Urine test visual color cmprsn meths Donovan Oliver Work Phone: Start: 05-26-2020 Urnls dip stick/tabl et rgnt auto w/o microscopy Donovan Oliver Work Phone: Start: 03-10-2020 Iadna bandar specie s direct probe tq Smitha L Rei Work Phone: Start: 01-07-2020 Radiologic examinati on femur minimum 2 views Kush Elaine Work Phone: Start: 01-07-2020 BASIC METABOLIC PANE L W/ REFLEX TO MG FOR LOW K Kush Elaine Work Phone: Start: 01-07-2020 Fibrin dgradj produc ts d-dimer quantitative Kush Elaine Work Phone: Start: 10-07-2019 Nasal sinus procedure C magalie Charles Start: 10-07-2019 Psychotherapy w/janeen ent 30 minutes Jada Johnson Work Phone: Start: 08-02-2019 Blood count complete auto&auto difrntl wbc Mouna Bell Work Phone: Start: 08-02-2019 Comprehensive metabo lic panel Mouna Bell Work Phone: Start: 08-01-2019 Blood count complete auto&auto difrntl wbc Delia Tyler Maryrst Work Phone: Start: 08-01-2019 Comprehensive metabo lic panel Delia N Barhorst Work Phone: Start: 07-31-2019 Blood count complete auto&auto difrntl wbc Lola Lo Work Phone: Start: 07-31-2019 Comprehensive metabo lic panel Delia Dawn Work Phone: Start: 07-29-2019 Antibody screen Willie Mckeon Start: 07-29-2019 Drug screen class list a Caron Michelogh Work Phone: Start: 07-29-2019 Protein total xcpt refractometry urine Caron Michelogh Work Phone: Start: 07-29-2019 Blood typing serolog ic abo Caron Michelogh Work Phone: Start: 07-29-2019 Comprehensive metabo lic panel Caron Michelogh Work Phone: Start: 07-29-2019 Blood count complete auto&auto difrntl wbc Caron Michelogh Work Phone: Start: 07-29-2019 T. PALLIDUM AB Caron [facility] Work Phone: Start: 07-04-2019 Iadna bandar specie s direct probe tq Aurelia Chairez Sean Work Phone: Start: 07-04-2019 Assay of blood/uric acid Aurelia Chairez Sean Work Phone: Start: 07-04-2019 Blood count complete automated Aurelia Chairez Sean Work Phone: Start: 07-04-2019 Comprehensive metabo lic panel Aurelia Chairez Sean Work Phone: Start: 07-04-2019 Lactate dehydrogenas e ldh Aurelia Chairez Sean Work Phone: Start: 07-04-2019 Protein total xcpt refractometry urine Aurelia Chairez Sean Work Phone: Start: 07-04-2019 Urinalysis microscop ic only Aurelia Chairez Sean Work Phone: Start: 07-04-2019 Urnls dip stick/tabl et rgnt auto w/o microscopy Aurelia Contreras Sean Work Phone: Start: 06-28-2019 Blood count complete auto&auto difrntl wbc Willie E Mike Work Phone: NEGATED: Highlighted row has not occurred!Start: 10-07-2019 reported medical history Karen Charles Plan of Treatment Date Care Activity Detail Author Start: 2051 Shingles Vaccine (1 of 2) Shingles Vaccine (1 of 2) [place], [place] Start: 05-15-2029 DTaP/Tdap/Td vaccine (6 - Td or Tdap) DTaP/Tdap/Td vaccine (6 - Td or Tdap) [facility] Start: 05-15-2029 DTaP/Tdap/Td vaccine (8 - Td or Tdap) DTaP/Tdap/Td vaccine (8 - Td or Tdap) [facility] Start: 05-15-2029 DTaP/Tdap/Td vaccine (8 - Td) DTaP/Tdap/Td vaccine (8 - Td) [place], [place] Start: 11-21-2023 Depression Screen Depression Screen [facility] Start: 06-14-2023 Screening for Chlamy chasity trachomatis [facility] Start: 06-09-2023 Depression Screen Depression Screen [facility] Start: 05-30-2023 Influenza vaccination Flu vaccine (# 1) [facility] Start: 02-20-2023 End: 02-20-2023 Patient encounter procedure 02/20/2023 Office Visit Family Medicine Alexis Fiore MD [address] [facility] [address] [place] [id number] [facility] Start: 2022 Screening for malign ant neoplasm of cervix Pap smear [facility] Start: 06-30-2022 Influenza vaccination Flu vaccine (# 1) [facility] Start: 05-30-2022 Influenza vaccination Flu vaccine (# 1) [facility] Start: 08-11-2021 Screening for Chlamy chasity trachomatis Chlamydia screen [facility] Start: 06-30-2021 Influenza vaccination Flu vaccine (# 1) [facility] Start: 03-10-2021 Screening for Chlamy chasity trachomatis Chlamydia screen [place], [place] Start: 08-02-2020 Creatinine monitoring Creatinine mon itoring [place], [place] Start: 08-02-2020 Potassium monitoring Potassium monit oring [place] Start: 07-04-2020 Chlamydia screen Chlamydia screen [place], [place] Start: 07-04-2020 Screening for Chlamy chasity trachomatis Chlamydia [place] Start: 06-30-2020 Influenza vaccination Flu vaccine (# 1) [place] Start: 02-12-2020 Chlamydia screen Chlamydia screen [place], [place] Start: 2019 Hepatitis C screening Hepatitis C sc melinda [facility] Start: 07-29-2019 End: 07-29-2019 Routine 07/29/2019 Routine Obstetrics and Gynecology [facility] [employer] Start: 07-25-2019 End: 07-25-2019 Ancillary Procedure 07/25/2019 Ancillary Procedure Obstetrics and Gynecology [facility] [employer] Start: 07-22-2019 End: 07-22-2019 Routine 07/22/2019 Routine Obstetrics and Gynecology [facility] [employer] DES[employer] Start: 07-18-2019 End: 07-18-2019 Ancillary Procedure 07/18/2019 Ancillary Procedure Obstetrics and Gynecology [facility] [employer] Start: 07-15-2019 End: 07-15-2019 Routine 07/15/2019 Routine Obstetrics and Gynecology Smitha Minaya, DRAWING CHECKER - CRUCIBLE FURNACE TENDER [address] [place] [address] [phone] [facility] [employer] Start: 07-11-2019 End: 07-11-2019 Ancillary Procedure 07/11/2019 Ancillary Procedure Obstetrics and Gynecology [facility] [employer] DES[employer] Start: 07-08-2019 End: 07-08-2019 Routine 07/08/2019 Routine Obstetrics and Gynecology Smitha Minaya, DRAWING CHECKER - CRUCIBLE FURNACE TENDER [address] [facility] [facility] [place] [address] [place] [address] [facility] [employer] Start: 07-04-2019 End: 07-04-2019 Ancillary Procedure 07/04/2019 Ancillary Procedure Obstetrics and Gynecology [facility] [employer]ITECTURAL DES[employer] Start: 07-03-2019 End: 07-03-2019 Routine 07/03/2019 Routine Obstetrics and Gynecology [facility] [employer] Start: 06-30-2019 Influenza vaccination Flu vaccine (# 1) [place] Start: 09-15-2018 HPV vaccine (3 - 3-d ose series) HPV vaccine (3 - 3-dose series) [facility] Start: 08-07-2018 HPV vaccine (3 - Fem janine 3-dose series) HPV vaccine (3 - Female 3-dose series) [place], [place] Start: 2013 COVID-19 Vaccine (1) COVID-19 Vaccin e (1) [facility] Start: 2006 COVID-19 Vaccine (1) COVID-19 Vaccin e (1) [facility] Start: 05-22-2002 COVID-19 Vaccine (#1) COVID-19 Vacci ne (#1) [facility] Start: 2001 Hepatitis C screening Hepatitis C sc reen [facility] End: 07-04-2019 Bacteria identified Cx Nom (U) Urine Culture Microbiology Routine Once for 1 Occurrences starting 07/04/2019 until 07/04/2019 [place] Comment on above: Once for 1 Occurrenc es starting 07/04/2019 until 07/04/2019 Bacteria identified Cx Nom (U) Urine Culture Microbiology Routine 07/04/2019 12:15 AM EDT [place] End: 06-27-2022 Baseline Diagnostic Sleep Study Baseline Diagnostic Sleep Study Sleep Center Routine Sleep difficulties Loud snoring Chronic fatigue 1 Occurrences starting 06/27/2022 until 06/27/2022 [facility] Work Phone: Comment on above: 1 Occurrences starti ng 06/27/2022 until 06/27/2022 End: 07-04-2019 C.trachomatis N.gonorrhoeae DNA C.trachomatis N.gonorrhoeae DNA Microbiology STAT One Time for 1 Occurrences starting 07/04/2019 until 07/04/2019 [place] Comment on above: One Time for 1 Occur rences starting 07/04/2019 until 07/04/2019 C.trachomatis N.gonorrhoeae DNA [place] End: 03-10-2020 C.trachomatis N.gonorrhoeae DNA C.trachomatis N.gonorrhoeae DNA Microbiology Routine Unprotected sex Acute vaginitis STD exposure 1 Occurrences starting 03/10/2020 until 03/10/2020 [place] Comment on above: 1 Occurrences starti ng 03/10/2020 until 03/10/2020 End: 08-11-2020 C.trachomatis N.gonorrhoeae DNA C.trachomatis N.gonorrhoeae DNA Microbiology Routine Screen for STD (sexually transmitted disease) Acute vaginitis Encounter for surveillance of implantable subdermal contraceptive 1 Occurrences starting 08/11/2020 until 08/11/2020 [place] Comment on above: 1 Occurrences starti ng 08/11/2020 until 08/11/2020 End: 07-15-2019 GROUP B STREP,PCR GROUP B STREP,PCR Microbiology Routine HRP (high risk ), third trimester Encounter for supervision of high risk in third trimester, antepartum 37 weeks gestation of 1 Occurrences starting 07/15/2019 until 07/15/2019 [place] Comment on above: 1 Occurrences starti ng 07/15/2019 until 07/15/2019 GROUP B STREP,PCR GROUP B STREP, PCR Microbiology Routine HRP (high risk ), third trimester Encounter for supervision of high risk in third trimester, antepartum 37 weeks gestation of 07/15/2019 7:55 PM EDT [place] End: 11-21-2022 Hepatitis C Antibody [employer] [facility] Work Phone: Comment on above: 1 Occurrences starti ng 11/21/2022 until 11/21/2022 End: 05-26-2020 Microscopic urinalysis Microscopic Urinalysis Lab Routine Once for 1 Occurrences starting 05/26/2020 until 05/26/2020 [place] Comment on above: Once for 1 Occurrenc es starting 05/26/2020 until 05/26/2020 Microscopic urinalysis Microscop ic Urinalysis Lab Routine 05/26/2020 5:40 PM EDT [place], [place] Nonrebreather mask oxygen Nonrebreather mask oxygen Respiratory Care Routine As directed - RT (PRN) until discontinued starting 07/03/2019 [place], [place] Comment on above: As directed - RT (PA N) until discontinued starting 07/03/2019 End: 08-01-2022 Sleep Study with PAP Titration Sleep Study with PAP [facility] Routine Obstructive sleep apnea 1 Occurrences starting 08/01/2022 until 08/01/2022 [facility] Phone: Comment on above: 1 Occurrences starti ng 08/01/2022 until 08/01/2022 End: 08-01-2019 Surgical Pathology Surgical Pathology Lab Routine Once for 1 Occurrences starting 08/01/2019 until 08/01/2019 [facility] [place] Comment on above: Once for 1 Occurrenc es starting 08/01/2019 until 08/01/2019 End: 01-31-2023 SURGICAL PATHOLOGY REPORT SURGICAL PATHOLOGY REPORT Lab Routine Once for 1 Occurrences starting 01/31/2023 until 01/31/2023 [facility] Phone: Comment on above: Once for 1 Occurrenc es starting 01/31/2023 until 01/31/2023 End: 08-11-2020 VAGINITIS DNA PROBE VAGINITIS DNA PROBE Microbiology Routine Once for 1 Occurrences starting 08/11/2020 until 08/11/2020 [facility] [place] Comment on above: Once for 1 Occurrenc es starting 08/11/2020 until 08/11/2020 VAGINITIS DNA PROBE VAGINITIS DN A PROBE Microbiology Routine 08/11/2020 11:43 PM EDT [facility] [place] End: 11-21-2022 Varicella Zoster Antibody, IgG [facility] Phone: Comment on above: 1 Occurrences starti ng 11/21/2022 until 11/21/2022 End: 11-21-2022 Vitamin D 25 Hydroxy [facility] Phone: Comment on above: 1 Occurrences starti ng 11/21/2022 until 11/21/2022 Immunizations Immunization Date Immunization Notes Care Provider Amanda plata 11-21-2022 Human Papillomavirus 9-valent vaccine Alexis Fiore MD Work Phone: [facility] Phone: 11-21-2022 Influenza, injectabl e, Madin Sherly Canine Kidney, preservative free, quadrivalent Alexis Fiore MD Work Phone: [facility] Work Phone: 08-02-2019 influenza, injectabl e, quadrivalent, preservative free [facility] 08-01-2019 influenza quadrivale nt split vaccine (FLUZONE;FLUARIX;FLULAVA L;AFLURIA) injection 0.5 mL [facility], [place] 07-31-2019 diphtheria, tetanus toxoids and acellular pertussis vaccine, unspecified formulation [facility] 05-15-2019 tetanus toxoid, redu lashawn diphtheria toxoid, and acellular pertussis vaccine, adsorbed [facility] 07-25-2018 meningococcal B vacc ine, recombinant, OMV, adjuvanted [facility], [place] 05-15-2018 Human Papillomavirus 9-valent vaccine [facility] 05-15-2018 meningococcal B vacc ine, recombinant, OMV, adjuvanted [facility] 05-15-2018 meningococcal oligosaccharide (groups A, C, Y and W-135) diphtheria toxoid conjugate vaccine (MCV4O) [facility] 10-04-2017 Human Papillomavirus 9-valent vaccine [facility] 10-04-2017 meningococcal oligosaccharide (groups A, C, Y and W-135) diphtheria toxoid conjugate vaccine (MCV4O) [facility] 09-25-2017 influenza, injectabl e, quadrivalent, preservative free [facility] 03-11-2015 tetanus toxoid, redu lashawn diphtheria toxoid, and acellular pertussis vaccine, adsorbed [facility], [place] 11-05-2012 hepatitis A vaccine, pediatric/adolescent dosage, 2 dose schedule Alexis Fiore MD Work Phone: [facility] Work Phone: 11-05-2012 hepatitis A vaccine, unspecified formulation [facility] 11-05-2012 influenza virus vacc ine, unspecified formulation Alexis Fiore MD Work Phone: [facility] Work Phone: 11-05-2012 varicella virus vaccine [facility], [place] 10-15-2009 novel Influenza-H1N1 -09, live virus for nasal administration Alexis Fiore MD Work Phone: [facility] Work Phone: 06-07-2007 poliovirus vaccine, inactivated [facility], [place] 03-01-2007 hepatitis A vaccine, unspecified formulation [facility] 06-27-2006 diphtheria, tetanus toxoids and acellular pertussis vaccine [facility] 06-27-2006 measles, mumps and rubella virus vaccine [facility] 06-27-2006 poliovirus vaccine, inactivated [facility] 06-27-2006 varicella virus vaccine [facility], [place] 12-14-2004 influenza virus vacc ine, unspecified formulation Alexis Fiore MD Work Phone: [facility] Work Phone: 12-14-2004 measles, mumps and rubella virus vaccine [facility] 12-14-2004 varicella virus vaccine [facility] [place] 09-22-2003 influenza virus vacc ine, unspecified formulation Alexis Fiore MD Work Phone: [facility] Work Phone: 09-22-2003 varicella virus vaccine [facility], [place] 08-21-2003 influenza virus vacc ine, unspecified formulation Alexis Fiore MD Work Phone: [facility] Work Phone: 08-21-2003 varicella virus vaccine [facility], [place] 05-12-2003 diphtheria, tetanus toxoids and acellular pertussis vaccine [facility] [place] 05-12-2003 diphtheria, tetanus toxoids and acellular pertussis vaccine, unspecified formulation Alexis Fiore MD Work Phone: [facility] Work Phone: 05-12-2003 haemophilus influenz ae type b vaccine, conjugate unspecified formulation Alexis Fiore MD Work Phone: [facility] Work Phone: 05-12-2003 Hib, unspecified [facility], [place] 05-12-2003 pneumococcal conjuga te vaccine, 7 valent Alexis Fiore MD Work Phone: [facility] Work Phone: 05-12-2003 pneumococcal Conjuga te, unspecified formulation [facility] 02-18-2003 diphtheria, tetanus toxoids and acellular pertussis vaccine [facility] 02-18-2003 pneumococcal conjuga te vaccine, 7 valent Alexis Fiore MD Work Phone: [facility] Work Phone: 02-18-2003 pneumococcal Conjuga te, unspecified formulation [facility], [place] 02-18-2003 varicella virus vaccine [facility], [place] 08-08-2002 diphtheria, tetanus toxoids and acellular pertussis vaccine [facility], [place] 08-08-2002 haemophilus influenz ae type b vaccine, conjugate unspecified formulation Alexis Fiore MD Work Phone: [facility] Work Phone: 08-08-2002 hepatitis B vaccine, adult dosage Petar Archuleta MD Work Phone: [facility] Work Phone: 08-08-2002 hepatitis B vaccine, pediatric or pediatric/adolescent dosage Alexis Fiore MD Work Phone: [employer] [facility] Work Phone: 08-08-2002 hepatitis B vaccine, unspecified formulation [facility] [place] 08-08-2002 Hib, unspecified [facility], [place] 08-08-2002 poliovirus vaccine, inactivated [facility], [place] 03-13-2002 diphtheria, tetanus toxoids and acellular pertussis vaccine [facility], [place] 03-13-2002 haemophilus influenz ae type b vaccine, conjugate unspecified formulation Alexis Fiore MD Work Phone: [facility] Work Phone: 03-13-2002 hepatitis B vaccine, adult dosage Petar Archuleta MD Work Phone: [facility] Work Phone: 03-13-2002 hepatitis B vaccine, pediatric or pediatric/adolescent dosage Alexis Fiore MD Work Phone: [facility] Work Phone: 03-13-2002 hepatitis B vaccine, unspecified formulation [facility] 03-13-2002 Hib, unspecified [facility] [place] 03-13-2002 pneumococcal conjuga te vaccine, 7 valent Alexis Fiore MD Work Phone: [employer] [facility] Work Phone: 03-13-2002 pneumococcal Conjuga te, unspecified formulation [facility] [place] 03-13-2002 poliovirus vaccine, inactivated [facility], [place] 01-31-2002 pneumococcal conjuga te vaccine, 7 valent Alexis Fiore MD Work Phone: [facility] Work Phone: 01-31-2002 pneumococcal Conjuga te, unspecified formulation [facility], [place] 01-10-2002 diphtheria, tetanus toxoids and acellular pertussis vaccine [place], [place] 01-10-2002 haemophilus influenz ae type b vaccine, conjugate unspecified formulation Alexis Fiore MD Work Phone: [facility] Work Phone: 01-10-2002 hepatitis B vaccine, adult dosage Petar Archuleta MD Work Phone: [facility] Work Phone: 01-10-2002 hepatitis B vaccine, unspecified formulation [place] 01-10-2002 Hib, unspecified [place], [place] 01-10-2002 poliovirus vaccine, inactivated [facility] 2001 hepatitis B vaccine, adult dosage Petar Archuleta MD Work Phone: [facility] 2001 hepatitis B vaccine, unspecified formulation [facility] 2001 hepatitis B vaccine, pediatric or pediatric/adolescent dosage Alexis Fiore MD Work Phone: [facility] Work Phone: NEGATED: Highlighted row has not occurred!08-02-2019 tetanus toxoid, reduced diphtheria toxoid, and acellular pertussis vaccine, adsorbed Willie Mckeon [place], [place] Comment on above: Deferred: - patient had already Payers Date Payer Category Payer Unknown [employer] [facility] xxxxxxxxxxx 2019-Present [phone] CLAIMS DEPARTMENT [address] [place] [address] xxxxxxxxxxx [id number] 2019 Unknown [employer] [id number] 2019-Present [phone] CLAIMS DEPARTMENT [address] [place] [address] [id number] 2019 Unknown [id number] 2019 Unknown [id number] 2017 Unknown [facility] xxxxxxxxxxxx 2017-Present [phone] [address] [place] [address] xxxxxxxxxxxx [id number] 2001 Unknown [id number] 2001 Unknown [id number] 2001 Unknown [id number] 2001 Unknown [id number] 2001 Unknown [id number] 2001 Unknown [id number] 2001 Unknown [id number] 2001 Unknown [id number] 2001 Unknown [id number] 2001 Unknown [id number] 2001 Unknown [id number] 2001 Unknown [id number] Self-pay [id number] Social History Date Type Detail Facility Start: 06-23-2019 End: 11-21-2022 Tobacco smoking status NHIS Never smoker [place], [place] Start: 06-23-2019 End: 11-21-2022 Alcohol intake No [facility] Start[facility] [place] [place] Start: 2001 Sex Assigned At Not on file M [place] Start: 03-10-2020 End: 07-23-2023 Alcohol intake Current non-drinker of alcohol (finding) [place] Exposure to SARS-CoV-2 (event) Unable to assess [place] Start: 05-26-2020 End: 11-21-2022 Tobacco use and exposure Never used [place] Start: 06-17-2022 End: 08-01-2022 Exposure to SARS-CoV-2 (event) Not sure [place] Assertion Family problems (finding) [facility] Work Phone: Assertion Emotional stress (finding) [facility] Work Phone: Assertion Social and perso nal history finding (finding) [facility] Work Phone: Assertion Exposure to poll ution (event) [facility] Work Phone: Assertion Contraception (finding) [facility] Work Phone: Assertion Sexually active (finding) [facility] Work Phone: Assertion Contraception st atus (finding) [facility] Work Phone: Assertion Gender identity finding (finding) [facility] Work Phone: Assertion Finding of sexua l orientation (finding) [facility] Work Phone: Tobacco smoking status Unknown if ever smoked [facility] Work Phone: Exposure to SARS-CoV-2 (event) Yes [employer] History of tobacco use Passive smoker [employer] Work Phone: Start: 10-03-2022 End: 11-21-2022 History SDOH Alcohol Frequency 1 [employer] Work Phone: Start: 11-21-2022 History SDOH Financial 5 [employer] Work Phone: Start: 11-21-2022 History SDOH Transport Med 2 [employer] Work Phone: Start: 10-02-2022 End: 11-21-2022 History of Social function [employer] How often to you hav e a drink containing alcohol? Never [employer] Average Number of Drinks Not on file [employer] (I/We) worried whether (my/our) food would run out before (I/we) got money to buy more. Never true [employer] In the past 12 months, was there a time when you were not able to pay the mortgage or rent on time? No [employer] NEGATED: Highlighted row Assertion Current drinker of alcohol (finding) [facility] Work Phone: NEGATED: Highlighted row Assertion Finding relating to drug misuse behavior (finding) [facility] Work Phone: NEGATED: Highlighted row Assertion Tobacco user (finding) [facility] Work Phone: Mental Status Date Assessment Result Facility Cognitive function Oriented to t felix, place, and person Oriented to person time and place (finding) [facility] Work Phone: Clinical Notes 06-30-2021 to 07-23-2023 Discharge InstructionsAttachmentsDischarge InstructionsInstructionsAttachmentsInstructionsAttachments Note Date & Type Note Facility 07-23-2023 Hospital Discharg e instructions Blair Matias PA-C - 07/23/2023 12:24 PM EDT Follow-up with primary care doctor 7 to 10 days for reevaluation. Avoid movements that worsen your pain. Take Tylenol or Motrin as directed for discomfort. Promptly return to emergency department for new, changing, worsening of symptoms or other concerns. The following attachments cannot be sent through Care Everywhere.Back Pain: Relief: General Info (Citizen [place])documented in this encounter [facility] 08-01-2022 [facility] instructions Harmony Tineo - 08/01/2022 8:24 PM EDT DME: FAY EPR: 3 MASK: F[employer]P [employer] documented in this encounter [facility] Work Phone: 09-16-2021 [facility] instructions Shanna Patel DO - 09/16/2021 Take Tylenol/ibuprofen as needed for pain and fever. Take Zofran as needed for nausea. Take Tessalon Perles as needed for cough. Take Augmentin for sinusitis. Please complete this antibiotic even if you begin to feel better. Please quarantine until 10 days after your symptom onset. If you have not had a fever for 24 hours and your symptoms are improving at this point you may return to work. Follow-up with the walk-in clinic as needed. Return to the ED if you develop worsening pain, shortness of breath, or other new/concerning symptoms. The following attachments cannot be sent through Care Everywhere.Coronavirus Disease (COVID-19): General Info (Citizen Of [place])documented in this encounter [facility] Phone: 06-30-2021 [facility] e instructions Deya Joe PA-C - 06/30/2021 Recommend PCR COVID testing. Please follow up with PCP. Return to the ED if symptoms change or worsen. The following attachments cannot be sent through Care Everywhere.Coronavirus Disease (COVID-19): General Info (Citizen Of [place])documented in this encounter [facility] Phone: Evaluation note Diagnosis Nonintractable headache, unspecified chronicity pattern, unspecified headache type- Primary Exposure to COVID-19 virus documented in this encounter [facility] Phone: evaluation note* Diagnosis Acute nonintractable headache, unspecified headache type- Primary Gastroesophageal reflux disease, unspecified whether esophagitis present documented in this encounter [facility] Phone: evaluation note* Diagnosis COVID-19- Primary documented in this encounter [facility] Phone: evaluation note* Diagnosis Sleep difficulties Sleep disturbance, unspecified Loud snoring Chronic fatigue Other malaise and fatigue documented in this encounter [facility] Phone: evaluation note* Diagnosis Obstructive sleep apnea Obstructive sleep apnea (adult) (pediatric) documented in this encounter [facility] Phone: evaluation note* Diagnosis Encounter for screening for viral disease Class 1 obesity due to excess calories without serious comorbidity with body mass index (BMI) of 34.0 to 34.9 in adult Chronic fatigue Other malaise and fatigue Sleep difficulties Sleep disturbance, unspecified Chronic pansinusitis Other chronic sinusitis documented in this encounter [facility] Phone: evaluation note* Diagnosis Back strain, initial encounter- Primary documented in this encounter [facility]* Instructions* Rene Barr MD - 09/09/2021 Smoking cigarettes or being around anyone that smokes cigarettes can cause constriction of the blood vessels in the brain which in turn can cause you to have further headaches. For pain use acetaminophen (Tylenol) or ibuprofen (Motrin / Advil), unless prescribed medications that have acetaminophen or ibuprofen (or similar medications) in it. You can take over the counter acetaminophen tablets (1 2 tablets of the 500-mg strength every 6 hours) or ibuprofen tablets (2 tablets every 4 hours). Avoid taking narcotics for headaches (can cause a worse headache in several hoursafter taking the medication). Make sure that you drink plenty of water or Gatorade (or similar solution) to keep yourself hydrated. PLEASE RETURN TO THE EMERGENCY DEPARTMENT IMMEDIATELY for worsening symptoms, change in vision / hearing / taste, ringing in your ears, loss of sensation or difficulty moving your arms or legs, or ifyou develop any concerning symptoms such as: high fever not relieved by acetaminophen (Tylenol) and/or ibuprofen (Motrin / Advil), chills, shortness of breath, chest pain, feeling of your heart fluttering or racing, persistent nausea and/or vomiting, vomiting up blood, blood in your stool, numbness, loss of consciousness, weakness or tingling in the arms or legs or change in color of the extremities, changes in mental status, persistent headache, blurry vision, loss of bladder / bowel control, u nable to follow up with your physician, or other any other care or concern * Attachments The following attachments cannot be sent through Care Everywhere. * GERD (Citizen [place]) [facility] Work Phone: Discharge Instructions * Instructions* Brittni Aguirre RN - 07/04/2019 Antepartum discharge. (before labor) Call physician if:: Contractions every 5 minutes Vaginal bleeding like first day of period .Gush or leaking of fluid. Nausea , vomiting or diarrhea lasting 8 hours or longer. Temp of 100.4 for 2 instances. Cramping which is not relieved with emptying bladder, increasing water intake or resting. Change in baby movement or absence of movement. Call if headache not relieved by extra strength tylenol. Blurred vision, nausea or pain under rightribs Drink 10-12 glasses of water daily Take all of medications prescribed. Keep next scheduled appointment documented in this encounter* Instructions* Lola Lo DO - 07/31/2019 After Your Delivery (the Period): Care Instructions Your Care Instructions Congratulations on the of your baby. Like , the period can be a time of excitement, larry, and exhaustion. You may look at your wondrous little baby and feel happy. You may also be overwhelmed by your new sleep hours and new responsibilities. At first, babies often sleep during the days and are awake at night. They do not have a pattern or routine. They may make sudden gasps, jerk themselves awake, or look like they have crossed eyes. These are all normal, and they may even make you smile. In these first weeks after delivery, try to take good care of yourself. It may take 4 to 6 weeks tofeel like yourself again, and possibly longer if you had a . You will likely feel very tired for several weeks. Your days will be full of ups and downs, but lots of larry as well. Follow-up care is a bautista part of your treatment and safety. Be sure to make and go to all appointments, and call your doctor if you are having problems. It's also a good idea to know your test resultsand keep a list of the medicines you take. How can you care for yourself at home? Take care of your body after delivery Use pads instead of tampons for the bloody flow that may last as long as 2 weeks. Ease cramps with ibuprofen (Advil, Motrin). Ease soreness of hemorrhoids and the area between your vagina and rectum with ice compresses or witch chace pads. Ease constipation by drinking lots of fluid and eating high-fiber foods. Ask your doctor about [id number] stool softeners. Cleanse yourself with a gentle squeeze of warm water from a bottle instead of wiping with toilet paper. Take a sitz bath in warm water several times a day. Wear a good nursing bra. Ease sore and swollen breasts with warm, wet washcloths. If you are not , use ice rather than heat for breast soreness. Your period may not start for several months if you are . You may bleed more, and longer at first, than you did before you got . Wait until you are healed (about 4 to 6 weeks) before you have sexual intercourse. Your doctor willtell you when it is okay to have sex. Try not to travel with your baby for 5 or 6 weeks. If you take a long car trip, make frequent stopsto walk around and stretch. Avoid exhaustion Rest every day. Try to nap when your baby naps. Ask another adult to be with you for a few days after delivery. Plan for child support case officer if you have other children. Stay flexible so you can eat at odd hours and sleep when you need to. Both you and your baby are making new schedules. Plan small trips to get out of the house. Change can make you feel less tired. Ask for help with housework, cooking, and shopping. Remind yourself that your job is to care for your baby. Know about help for depression Baby blues are common for the first 1 to 2 weeks after . You may cry or feel sad or irritable for no reason. Rest whenever you can. Being tired makes it harder to handle your emotions. Go for walks with your baby. Talk to your partner, friends, and family about your feelings. If your symptoms last for more than a few weeks, or if you feel very depressed, ask your doctor forhelp. depression can be treated. Support groups and counseling can help. Sometimes medicine can also help. Stay healthy Eat healthy foods so you have more energy and lose extra baby pounds. If you breastfeed, avoid drugs. If you quit smoking during , try to stay smoke-free. If you choose to have a drink now and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
[2023-12-19 15:08] LABS: Age Gdln ACOG Testing Note (.); IGP, rfx Aptima HPV ASCU Note (.)
== END 2023-12-14 21:35 | disposition home or self-care (01) ==
LOC: LAB 21:34
PROVIDERS: Visit Provider Obstetrics & Gynecology
DX: Z01.419 Encounter for gynecological examination (general) (routine) without abnormal findings (principal)
CPT/HCPCS: G0145